=== PATIENT | female | born 1970 | race Caucasian/White ===

== ENCOUNTER → 2020-09-23 08:49 | Outpatient (BNVA) | payer OTHER, SELFPAY | PROVIDERS: Visit Provider Urology ==

== ENCOUNTER 2020-11-20 10:23 | Outpatient (REF) | payer OTHER, SELFPAY ==
[2020-11-27 18:12] LABS: URO-Brushite 24 Hr Urine 1.75 (<2.00); URO-Calcium 24 Hr Urine 41 mg/day (<250.0); URO-Calcium Oxalat 24 Hr Urine 0.24 (<2.00); URO-Citric Acid 24 Hr Urine 50 mg/day (>320); URO-Creatinine 24 Hr Urine 185 mg/day (600-1800); URO-Magnesium 24 Hr Urine 21 mg/day (>60.0); URO-Oxalate 24 Hr Urine 3 mg/day (<45); URO-Phosphorus 24 Hr Urine 272 mg/day (<1100); URO-Potassium 24 Hr Urine 27 mEq/day (19-135); URO-Sodium 24 Hr Urine 92 mEq/day (<200); URO-Sodium Urate 24 Hr Urine 2.28 (<2.00); URO-Sulfate 24 Hr Urine 3 mmol/day (<30); URO-Total Volume 0.76 L/day (>2.00); URO-Uric Acid 24 Hr Urine 0.11 (<2.00); URO-Uric Acid 24 Hr Urine 169 mg/day (<700)
== END 2020-11-20 10:24 | disposition home or self-care (01) ==
LOC: HO.LNP 10:23
PROVIDERS: Urology
DX: N20.0 Calculus of kidney (principal); Q61.5 Medullary cystic kidney; Z90.5 Acquired absence of kidney
CPT/HCPCS: 82340; 82507; 82570; 83735; 83945; 83986; 84105; 84133; 84300; 84392; 84560

== ENCOUNTER 2020-12-01 10:15 | Inpatient (IN) | payer OTHER, SELFPAY ==
--- NOTE | ~2020-12-01 | FL_ITS ---
EXAMINATION: XR FLUOROSCOPY WITH IMAGES CLINICAL INFORMATION: Renal stone disease. COMPARISON: CT abdomen/pelvis 12/01/2020 TECHNIQUE: Fluoroscopy performed by Dr. Bennett Stanton. Fluoroscopy time: 36.6 seconds DAP: 7.64 mGy-m2 Images: 2 FINDINGS: Initial image demonstrates contrast in a normal-appearing right upper collecting system and a normal-appearing proximal right ureter. The second image demonstrates the distal end of a double-J ureteral stent. FL/FL guidance in OR IMPRESSION: Fluoroscopy and spot films provided during right internally dwelling ureteral stent placement.
--- NOTE | ~2020-12-01 | CT_ITS ---
EXAMINATION: CT ABDOMEN AND PELVIS WITHOUT CONTRAST CLINICAL INFORMATION: Right flank pain COMPARISON: Previous abdominal ultrasound June [address] of the abdomen and pelvis most recent April 2009 TECHNIQUE: Multidetector volumetric imaging was performed from the superior aspect of the liver through the pubic symphysis. Sagittal and coronal reformatted images were obtained on the technologist's workstation. This CT examination was performed using dose optimization techniques as appropriate, variously including the following: *Automated exposure control *Adjustment of mA and/or kV according to patient size (this includes techniques or standardized protocols for targeted exams where dose is matched to indication/reason for exam; i.e. extremities or head) *Use of iterative reconstruction technique DLP: 380 mGy-cm FINDINGS: LUNG BASES: The visualized lung bases are unremarkable. LIVER, GALLBLADDER, AND BILIARY TREE: The liver is normal in size, shape, and attenuation. No focal hepatic lesion or biliary ductal dilatation is present. The gallbladder is unremarkable with no evidence of radiopaque gallstones, gallbladder wall thickening, or obvious pericholecystic inflammatory changes. PANCREAS: Unremarkable. SPLEEN: Unremarkable. ADRENAL GLANDS: Unremarkable. KIDNEYS AND URETERS: There is high attenuation seen centrally in the kidneys suggestive of medullary nephrocalcinosis. No hydronephrosis, ureteral dilatation or ureteral stone is seen. The left kidney has been removed. BLADDER: Unremarkable. GASTROINTESTINAL TRACT: The small and large bowel are unremarkable. The appendix is unremarkable. ABDOMINAL WALL: No significant hernia is appreciated. LYMPH NODES: Normal. VASCULAR: There is evidence of mild atherosclerotic disease. No aneurysm is seen. PELVIC VISCERA: Unremarkable. OSSEOUS STRUCTURES: There are degenerative changes of the spine.. CT/CT abdomen pelvis wo con IMPRESSION: Right medullary nephrocalcinosis. No obstructing right renal or ureteral stone seen.
--- NOTE | 2020-12-01 10:49 | ECG_ITS ---
Test Reason : SEIZURE Blood Pressure : / mmHG Vent. Rate : 080 BPM Atrial Rate : 080 BPM P-R Int : 160 ms QRS Dur : 078 ms QT Int : 408 ms P-R-T Axes : 056 031 036 degrees QTc Int : 470 ms Normal sinus rhythm Normal ECG No previous ECGs available Referred By: Sharlene Miner Electronically Signed By:MALACHI NINO
--- NOTE | 2020-12-01 10:51 | ED.GENADULT ---
HPI - General Adult General Chief complaint: Seizure Stated complaint: KIDNEY STONE PAIN Time Seen by Provider: 12/01/20 10:47 Source: patient and family Mode of arrival: wheelchair Limitations: no limitations History of Present Illness HPI narrative: Patient comes emergency room complaining right-sided flank pain. Patient has history of kidney stones. The states that she was asked to come yesterday to the emergency room by Dr. Stanton. Per patient's , last night when the ambulance was called to the patient's residence, the EMS crew refused to take the patient to [facility]. The patient refused transfer and waited until today. Patient initially came in with a chief complaint of flank pain. However, patient had a seizure in the waiting room. According to the , the patient has history of epilepsy, takes Dilantin and Keppra. Patient is compliant with her medications. Patient is known to have clusters of breakthrough seizures every so many weeks. Today patient had a seizure prior to leaving her house, 1 in the car as she was coming to the emergency room, and 1 in the waiting room. Patient is awake and alert, postictal, able to state that she has left flank pain Related Data Home Medications Medication Instructions Recorded Confirmed ondansetron 8 mg disintegrating 8 mg PO Q8H PRN 09/23/20 12/01/20 tablet acetaminophen 325 mg tablet 650 mg PO Q6H PRN 12/01/20 12/01/20 erenumab-aooe 140 mg/mL 140 mg SUBCUT QMONTH 12/01/20 12/01/20 subcutaneous auto-injector gabapentin 300 mg capsule 1 cap PO BID 12/01/20 12/01/20 hydromorphone 4 mg tablet 4 mg PO Q6H PRN 12/01/20 12/01/20 (Dilaudid) levetiracetam 750 mg tablet 1 tab PO QID 12/01/20 12/01/20 omeprazole 20 mg capsule,delayed 1 cap PO DAILY 12/01/20 12/01/20 release oxycodone 20 mg tablet 1 tab PO 5XD 12/01/20 12/01/20 phenytoin sodium extended 100 mg 1 cap PO QID 12/01/20 12/01/20 capsule promethazine 25 mg tablet 1 tab PO Q6H PRN 12/01/20 12/01/20 ropinirole 1 mg tablet 1 tab PO BEDTIME 12/01/20 12/01/20 Allergies Allergy/AdvReac Type Severity Reaction Status Date / Time atropine [ATROPINE] Allergy Unknown ANAPHYLAXIS Verified 11/20/20 10:29 droperidol [From INAPSINE] Allergy Unknown SEIZURES Verified 11/20/20 10:29 NSAIDS (Non-Steroidal Allergy Unknown RENAL Verified 11/20/20 10:29 Anti-Inflamma FAILURE [NSAIDS] sumatriptan [From IMITREX] Allergy Unknown SEIZURES Verified 11/20/20 10:29 From COMPAZINE Allergy Unknown SEIZURES Uncoded 12/06/19 16:20 From IMITREX Allergy Unknown SEIZURES Uncoded 12/06/19 16:20 From REGLAN Allergy Unknown SEIZURES Uncoded 12/06/19 16:20 From TORADOL Allergy Unknown SEIZURES Uncoded 12/06/19 16:20 From ULTRAM Allergy Unknown SEIZURES Uncoded 12/06/19 16:20 Review of Systems Review of Systems: Complaining of flank pain, patient postictal Yes Unobtainable due to mental condition [facility] Past Medical History Medical History (Updated 12/01/20 @ 17:28 by Sharlene Miner MD) Epilepsy Hypokalemia Medullary sponge kidney Microscopic hematuria Nephropathy Recurrent urinary tract infection Systemic lupus erythematosus Social History Social History Patient Tobacco Use Status: Current everyday Tobacco user Advance Directives: No Advance Directives Information Provided: No Patient : No Physical Exam Vital Signs: Vital Signs: Last Vital Signs Temp 98.1 F 12/01/20 10:52 Pulse 75 12/01/20 10:52 Resp 16 12/01/20 10:52 BP 134/91 H 12/01/20 10:52 Pulse Ox 98 12/01/20 10:52 Body Mass Index 20.5 Const: Other: Appearance: Alert. Patient postictal, confused, states she has flank pain Eyes: Pupils dilated, equal, round and reactive to light. ENT: Pharynx normal. No tongue lacerations Neck: Normal inspection. Neck supple. No lymph nodes noted. No crepitus CVS: Normal heart rate and rhythm. Pulses normal. Normal S1 and S2 Respiratory: No respiratory distress. Breath sounds normal. No Wheezing. No rales Abdomen: Soft and nontender. No rigidity. No distention. Positive CVA tenderness on the right side Skin: Skin warm and dry. Normal skin color. Normal skin turgor. Extremities: No lower extremity edema. No lower extremity edema. No Lacerations. No Rash Neuro: Oriented X 3. No motor deficit. No sensory deficit. Moving all extermities. No slurred speech. Course Course Course Narrative: Patient had 2 tonic clonic seizures in the room. Patient was given Ativan. Then patient was given a dose of IV Keppra and IV Dilantin. Patient claims to be having tonic-clonic seizures due to the pain. Nobody witnessed the last 2 seizures. Patient states that the 1 thing that helps her pain is Dilaudid. Patient has had multiple doses of Dilaudid. I discussed the patient with Dr. Stanton, who asks that the hospitalist admit the patient and he will consult in the morning At 05:50pm , patient had ?a seizure? however, patient is actually having pseudoseizures. While patient was having a seizure, she was asked if he wanted Dilaudid and she shook her head yes and she suddenly stop making all the jerking movements. Patient was not postictal afterwards. so far, patient has been medicated with phenytoin IV, Keppra IV, 3 mg of Dilaudid, 6 of morphine, 4 of Ativan. I discussed the patient with our hospitalist, patient being admitted. Medical Decision Making Lab Data Result diagrams: 12/01/20 11:05 12/01/20 11:05 Labs: Lab Results 12/01/20 12/01/20 12/01/20 Range/Units 11:05 11:05 11:05 WBC 2.7 L (4.8-10.8) X10*3/uL RBC 3.81 L (4.20-5.50) X10*6/uL Hgb 12.9 (12.0-16.0) g/dl Hct 37.3 (37-47) % MCV 97.9 (80-98) fL MCH 33.9 H (27.0-33.0) pg MCHC 34.6 (31.0-35.0) g/dl RDW 13.5 (11.0-16.0) % Plt Count 141 L (160-400) X10*3/uL MPV 11.8 (9.4-12.3) fL Immature Gran % (Auto) 0.0 (0.0-0.4) % Neut % (Auto) 55.3 (45-73) % Lymph % (Auto) 32.5 (20-40) % Saline % (Auto) 8.5 (2-11) % Eos % (Auto) 3.0 (0-4) % Baso % (Auto) 0.7 (0-2) % Lymph # (Auto) 0.9 L (1.2-4.9) X10*3/uL Saline # (Auto) 0.2 (0.1-1.2) X10*3/uL Eos # (Auto) 0.1 (0.0-0.4) X10*3/uL Baso # (Auto) 0.0 (0.0-0.2) X10*3/uL Abs Immat Gran (auto) 0.00 (0.00-0.03) X10*3/uL Absolute Neuts (auto) 1.5 L (2.0-8.3) X10*3/uL Absolute Nucleated RBC 0.000 (0.0-0.012) X10*3/uL Nucleated RBC % (auto) 0.0 (0.0-0.2) /100WBC Sodium 138 (135-145) mmol/L Potassium 4.1 (3.3-5.1) mmol/L Chloride 103 (96-108) mmol/L Carbon Dioxide 24 (22-29) mmol/L Anion Gap 15 (12-20) BUN 19 H (9-16) mg/dL Creatinine 0.89 (0.5-1.4) mg/dL Estim Creat Clear Calc 64.2 Estimated GFR > 60 Random Glucose 85 (60-115) mg/dL Lactic Acid (0.5-2.0) mmol/L Lactic Acid Fup @ 2Hr (0.5-2.0) mmol/L Calcium 9.3 (8.4-10.2) mg/dL Total Bilirubin 0.2 (0.0-1.0) mg/dL Direct Bilirubin 0.2 (0.0-0.5) mg/dL AST 44 H (5-31) U/L ALT 29 (0-31) U/L Alkaline Phosphatase 167 H (39-117) U/L Total Protein 6.7 (6.5-8.0) g/dL Albumin 4.1 (3.5-5.0) g/dL Lipase 43 (8-78) U/L Urine Color Urine Appearance Urine pH (5.0-8.0) Ur Specific [place] (1.005-1.025) Urine Protein (NEG-TRACE) MG/DL Urine Glucose (UA) (NEG) MG/DL Urine Ketones (NEG) MG/DL Urine Blood (NEG) Urine Nitrite (NEG) Ur Leukocyte Esterase (NEG) Urine RBC (0) /HPF Urine WBC (0-4) /HPF Ur Squamous Epith Cells /LPF Urine Bacteria /LPF Urine Opiates Screen (Not Detect) Urine Fentanyl Screen (Not Detect) Ur Barbiturates Screen (Not Detect) Ur Phencyclidine Scrn (Not Detect) Ur Amphetamines Screen (Not Detect) U Benzodiazepines Scrn (Not Detect) Urine Cocaine Screen (Not Detect) U Marijuana (THC) Screen (Not Detect) COVID-19 (DANIEL) (Negative) COVID-19 Clin Com 12/01/20 12/01/20 12/01/20 Range/Units 11:05 11:09 14:04 WBC (4.8-10.8) X10*3/uL RBC (4.20-5.50) X10*6/uL Hgb (12.0-16.0) g/dl Hct (37-47) % MCV (80-98) fL MCH (27.0-33.0) pg MCHC (31.0-35.0) g/dl RDW (11.0-16.0) % Plt Count (160-400) X10*3/uL MPV (9.4-12.3) fL Immature Gran % (Auto) (0.0-0.4) % Neut % (Auto) (45-73) % Lymph % (Auto) (20-40) % Saline % (Auto) (2-11) % Eos % (Auto) (0-4) % Baso % (Auto) (0-2) % Lymph # (Auto) (1.2-4.9) X10*3/uL Saline # (Auto) (0.1-1.2) X10*3/uL Eos # (Auto) (0.0-0.4) X10*3/uL Baso # (Auto) (0.0-0.2) X10*3/uL Abs Immat Gran (auto) (0.00-0.03) X10*3/uL Absolute Neuts (auto) (2.0-8.3) X10*3/uL Absolute Nucleated RBC (0.0-0.012) X10*3/uL Nucleated RBC % (auto) (0.0-0.2) /100WBC Sodium (135-145) mmol/L Potassium (3.3-5.1) mmol/L Chloride (96-108) mmol/L Carbon Dioxide (22-29) mmol/L Anion Gap (12-20) BUN (9-16) mg/dL Creatinine (0.5-1.4) mg/dL Estim Creat Clear Calc Estimated GFR Random Glucose (60-115) mg/dL Lactic Acid 2.1 H* (0.5-2.0) mmol/L Lactic Acid Fup @ 2Hr 1.3 (0.5-2.0) mmol/L Calcium (8.4-10.2) mg/dL Total Bilirubin (0.0-1.0) mg/dL Direct Bilirubin (0.0-0.5) mg/dL AST (5-31) U/L ALT (0-31) U/L Alkaline Phosphatase (39-117) U/L Total Protein (6.5-8.0) g/dL Albumin (3.5-5.0) g/dL Lipase (8-78) U/L Urine Color Urine Appearance Urine pH (5.0-8.0) Ur Specific [place] (1.005-1.025) Urine Protein (NEG-TRACE) MG/DL Urine Glucose (UA) (NEG) MG/DL Urine Ketones (NEG) MG/DL Urine Blood (NEG) Urine Nitrite (NEG) Ur Leukocyte Esterase (NEG) Urine RBC (0) /HPF Urine WBC (0-4) /HPF Ur Squamous Epith Cells /LPF Urine Bacteria /LPF Urine Opiates Screen (Not Detect) Urine Fentanyl Screen (Not Detect) Ur Barbiturates Screen (Not Detect) Ur Phencyclidine Scrn (Not Detect) Ur Amphetamines Screen (Not Detect) U Benzodiazepines Scrn (Not Detect) Urine Cocaine Screen (Not Detect) U Marijuana (THC) Screen (Not Detect) COVID-19 (DANIEL) Negative (Negative) COVID-19 Clin Com See Note 12/01/20 12/01/20 Range/Units 16:09 16:09 WBC (4.8-10.8) X10*3/uL RBC (4.20-5.50) X10*6/uL Hgb (12.0-16.0) g/dl Hct (37-47) % MCV (80-98) fL MCH (27.0-33.0) pg MCHC (31.0-35.0) g/dl RDW (11.0-16.0) % Plt Count (160-400) X10*3/uL MPV (9.4-12.3) fL Immature Gran % (Auto) (0.0-0.4) % Neut % (Auto) (45-73) % Lymph % (Auto) (20-40) % Saline % (Auto) (2-11) % Eos % (Auto) (0-4) % Baso % (Auto) (0-2) % Lymph # (Auto) (1.2-4.9) X10*3/uL Saline # (Auto) (0.1-1.2) X10*3/uL Eos # (Auto) (0.0-0.4) X10*3/uL Baso # (Auto) (0.0-0.2) X10*3/uL Abs Immat Gran (auto) (0.00-0.03) X10*3/uL Absolute Neuts (auto) (2.0-8.3) X10*3/uL Absolute Nucleated RBC (0.0-0.012) X10*3/uL Nucleated RBC % (auto) (0.0-0.2) /100WBC Sodium (135-145) mmol/L Potassium (3.3-5.1) mmol/L Chloride (96-108) mmol/L Carbon Dioxide (22-29) mmol/L Anion Gap (12-20) BUN (9-16) mg/dL Creatinine (0.5-1.4) mg/dL Estim Creat Clear Calc Estimated GFR Random Glucose (60-115) mg/dL Lactic Acid (0.5-2.0) mmol/L Lactic Acid Fup @ 2Hr (0.5-2.0) mmol/L Calcium (8.4-10.2) mg/dL Total Bilirubin (0.0-1.0) mg/dL Direct Bilirubin (0.0-0.5) mg/dL AST (5-31) U/L ALT (0-31) U/L Alkaline Phosphatase (39-117) U/L Total Protein (6.5-8.0) g/dL Albumin (3.5-5.0) g/dL Lipase (8-78) U/L Urine Color YELLOW Urine Appearance CLEAR Urine pH 6.5 (5.0-8.0) Ur Specific [place] 1.015 (1.005-1.025) Urine Protein NEG (NEG-TRACE) MG/DL Urine Glucose (UA) NEG (NEG) MG/DL Urine Ketones NEG (NEG) MG/DL Urine Blood 3+ H (NEG) Urine Nitrite NEG (NEG) Ur Leukocyte Esterase NEG (NEG) Urine RBC 15-29 H (0) /HPF Urine WBC 0 (0-4) /HPF Ur Squamous Epith Cells 1+ /LPF Urine Bacteria NONE /LPF Urine Opiates Screen Not Detected (Not Detect) Urine Fentanyl Screen POSITIVE H (Not Detect) Ur Barbiturates Screen Not Detected (Not Detect) Ur Phencyclidine Scrn Not Detected (Not Detect) Ur Amphetamines Screen Not Detected (Not Detect) U Benzodiazepines Scrn Not Detected (Not Detect) Urine Cocaine Screen Not Detected (Not Detect) U Marijuana (THC) Screen POSITIVE H (Not Detect) COVID-19 (DANIEL) (Negative) COVID-19 Clin Com Imaging Data CT scan - abdomen: Radiologist's impression: COMPARISON: Previous abdominal ultrasound June [address] of the abdomen and pelvis most recent April 2009? TECHNIQUE: Multidetector volumetric imaging was performed from the superior aspect of the liver through the pubic symphysis. Sagittal and coronal reformatted images were obtained on the technologist's workstation.? This CT examination was performed using dose optimization techniques as appropriate, variously including the following: *Automated exposure control *Adjustment of mA and/or kV according to patient size (this includes techniques or standardized protocols for targeted exams where dose is matched to indication/reason for exam; i.e. extremities or head) *Use of iterative reconstruction technique DLP: 380 mGy-cm FINDINGS: LUNG BASES: The visualized lung bases are unremarkable.? LIVER, GALLBLADDER, AND BILIARY TREE: The liver is normal in size, shape, and attenuation. No focal hepatic lesion or biliary ductal dilatation is present. The gallbladder is unremarkable with no evidence of radiopaque gallstones, gallbladder wall thickening, or obvious pericholecystic inflammatory changes.? PANCREAS: Unremarkable.? SPLEEN: Unremarkable.? ADRENAL GLANDS: Unremarkable.? KIDNEYS AND URETERS: There is high attenuation seen centrally in the kidneys suggestive of medullary nephrocalcinosis. No hydronephrosis, ureteral dilatation or ureteral stone is seen. The left kidney has been removed. BLADDER: Unremarkable.? GASTROINTESTINAL TRACT: The small and large bowel are unremarkable. The appendix is unremarkable.? ABDOMINAL WALL: No significant hernia is appreciated.? LYMPH NODES: Normal. VASCULAR: There is evidence of mild atherosclerotic disease. No aneurysm is seen. PELVIC VISCERA: Unremarkable.? OSSEOUS STRUCTURES: There are degenerative changes of the spine..? CT/CT abdomen pelvis wo con IMPRESSION: Right medullary nephrocalcinosis. No obstructing right renal or ureteral stone seen. Discharge Plan Discharge Clinical Impression: Acute flank pain, Generalized seizure Patient Disposition: Home, Self-Care Prescriptions: No Action acetaminophen 325 mg Tablet 650 mg PO Q6H PRN (Reason: Pain (Scale Score 1-3)) RF: 0 hydromorphone [Dilaudid] 4 mg tablet 4 mg PO Q6H PRN (Reason: Pain (Scale Score 7-10)) RF: 0 gabapentin 300 mg capsule 1 cap PO BID RF: 0 levetiracetam 750 mg tablet 1 tab PO QID RF: 0 erenumab-aooe 140 mg/mL Auto-Injector 140 mg SUBCUT QMONTH RF: 0 omeprazole 20 mg capsule,delayed release(DR/EC) 1 cap PO DAILY RF: 0 ropinirole 1 mg tablet 1 tab PO BEDTIME RF: 0 promethazine 25 mg tablet 1 tab PO Q6H PRN (Reason: nausea/vomiting) RF: 0
[2020-12-01 10:52] VITALS: BP 134/91; PULSE 75; RESP 16; TEMP 36.7; O2SAT 98; BMI 20.5
[2020-12-01 11:11] LABS: MANUAL DIFF FLAG NO
[2020-12-01 11:12] LABS: Basophils Percent Auto 0.7 % (0-2); Eosinophils Absolute Auto 0.1 X10*3/uL (0.0-0.4); Hematocrit 37.3 % (37-47); Hemoglobin 12.9 g/dl (12.0-16.0); Lymphocytes Absolute Auto 0.9 X10*3/uL (1.2-4.9); Lymphocytes Percent Auto 32.5 % (20-40); Mean Corpuscular HGB Conc 34.6 g/dl (31.0-35.0); Mean Corpuscular Hemoglobin 33.9 pg (27.0-33.0); Mean Corpuscular Volume 97.9 fL (80-98); Mean Platelet Volume 11.8 fL (9.4-12.3); Monocytes Absolute Auto 0.2 X10*3/uL (0.1-1.2); Monocytes Percent Auto 8.5 % (2-11); Neutrophils Absolute Auto 1.5 X10*3/uL (2.0-8.3); Neutrophils Percent Auto 55.3 % (45-73); Platelet Count 141 X10*3/uL (160-400); Red Blood Count 3.81 X10*6/uL (4.20-5.50); Red Cell Distribution Width 13.5 % (11.0-16.0); White Blood Count 2.7 X10*3/uL (4.8-10.8)
[2020-12-01 11:32] LABS: Alanine Aminotransferase 29 U/L (0-31); Albumin Level 4.1 g/dL (3.5-5.0); Alkaline Phosphatase 167 U/L (39-117); Anion Gap 15 (12-20); Aspartate Amino Transferase 44 U/L (5-31); Bilirubin Direct 0.2 mg/dL (0.0-0.5); Bilirubin Total 0.2 mg/dL (0.0-1.0); Blood Urea Nitrogen 19 mg/dL (9-16); Calcium 9.3 mg/dL (8.4-10.2); Carbon Dioxide 24 mmol/L (22-29); Chloride 103 mmol/L (96-108); Creatinine Clr Calc Pharmacy 64.2; Estimated Glomerular Filt Rate > 60; Glucose Random 85 mg/dL (60-115); Lipase 43 U/L (8-78); Potassium 4.1 mmol/L (3.3-5.1); Sodium 138 mmol/L (135-145); Total Protein 6.7 g/dL (6.5-8.0)
[2020-12-01 11:33] LABS: Lactic Acid 2.1 mmol/L (0.5-2.0)
[2020-12-01 11:39] LABS: COVID-19 Test Negative (Negative)
[2020-12-01] MEDS: LORazepam 2 MG/ML VIAL IM (11:57)
[2020-12-01] MEDS: levETIRAcetam in NaCl (iso-os) 1,500 MG/100 ML PIGGYBACK 400 MG IV (12:07)
[2020-12-01] MEDS: 0.9 % Sodium Chloride 1,000 ML 999 ML IVCONT (12:07)
[2020-12-01] MEDS: ondansetron HCL 4 MG/2 ML VIAL IVPUSH (12:11)
[2020-12-01 13:11] LABS: Reflex Lactate? Lactic Acid Added
[2020-12-01] MEDS: Morphine Sulfate 4 MG/ML CARTRIDGE IVPUSH (13:18)
[2020-12-01] MEDS: LORazepam 2 MG/ML VIAL 1 MG IVPUSH (13:20)
--- NOTE | 2020-12-01 13:35 | PHA.MEDREC ---
Pharmacy Consult ? Medication Reconciliation Pharmacy has completed the medication reconciliation. SPOKE WITH PATIENT IN THE ED.
[2020-12-01 14:20] LABS: ~Lactic Acid-LAB USE ONLY 1.3 mmol/L (0.5-2.0)
[2020-12-01] MEDS: Phenytoin Sodium 100 MG/2 ML VIAL 300 MG IVPUSH (14:23)
[2020-12-01] MEDS: HYDROmorphone HCl 1 MG/ML SYRINGE IVPUSH (15:52)
[2020-12-01 16:19] LABS: Appearance Urine CLEAR; Color Urine YELLOW; Glucose Urine UA NEG (NEG); Leukocyte Esterase Urine NEG (NEG); Nitrite Urine NEG (NEG); PH 6.5 (5.0-8.0); Specific Gravity - Urine 1.015 (1.005-1.025); UACC Culture Trigger NO; Urine Blood 3+ (NEG); Urine Ketones NEG (NEG); Urine Protein NEG (NEG-TRACE)
[2020-12-01 16:30] LABS: Squamous Epithelial Cell Urine 1+ /LPF; WBC Urine 0 /HPF (0-4)
[2020-12-01 16:42] LABS: Amphetamine Screen Urine Not Detected (Not Detect); Barbiturates, Urine Not Detected (Not Detect); Benzodiazepines Screen Urine Not Detected (Not Detect); Cannabinoid Screen Urine POSITIVE (Not Detect); Cocaine Screen Urine Not Detected (Not Detect); Fentanyl, urine POSITIVE (Not Detect); Opiate Screen Urine Not Detected (Not Detect); Phencyclidine Screen Urine Not Detected (Not Detect)
[2020-12-01 19:35] VITALS: BP 134/91; PULSE 75; RESP 16; TEMP 36.7
--- NOTE | 2020-12-01 19:37 | PC.NURSE ---
PT ARRIVED ACTIVELY SEIZING, PT HAS BEEN ASKING FOR DILATED THROUGH OUT THE SHIFT, PT HAS HAD SOME SEUDO SEIZURES AND THEN REQUESTS PAIN MEDICATION. HOW EVER PT DOES HAVE A SEIZURE DISORDER KEPPRA/DIANTIN LEVELS LOW KEPPRA AND DILANTIN GIVEN. POWER PORT ACCESSED. PT IS AOX4 ABLE TO GET OOB TO COMODE NEEDED.
--- NOTE | 2020-12-01 19:39 | PC.NURSE ---
PT HAS BEEN REFUSING PAIN MEDICATIONS, AND THEN WILL ASK FOR THEM 20 TO 30 MINS LATER,
--- NOTE | 2020-12-01 19:43 | PM.IMHP ---
History of Present Illness Date of Service: 12/01/20 Chief Complaint: Flank pain 50-year-old female with a past medical history of epilepsy, medical response kidney, microscopic hematuria, nephropathy, SLE, history of recurrent UTI presented to the hospital with a chief complaint of flank pain on the right side; Patient reports that he has been having right flank pain for the past 1 day; associated nausea; denies any gross blood in the urine. Denies any burning frequency or urgency. Denies any chest pain or palpitations. Reports she has a history of medullary sponge kidney and history of kidney stones; Also mentions that she has a history of epilepsy and now she is in severe pain she gets of breakthrough seizures; is on Keppra and Dilantin at home and reports he has been compliant. Denies any fall or trauma. Denies any chest pain palpitations lightheadedness or dizziness. Denies any numbness tingling or focal weakness. Patient is alert and awake at the time of my interview. ER course: Per ER team patient reportedly had 1 seizure at home for 1 in the EMS, 1 in the waiting area in the ER; and followed by she had 2 seizures in the ER. Patient was given Ativan, Keppra, Dilantin in the ER. Patient was asking for IV pain medications and was given IV morphine, IV Dilaudid, IV Ativan. ER team mentioned that day discussed with the Urology who recommended admission to the medicine service. [facility] Medical History (Updated 12/03/20 @ 15:54 by Evelyn Madsen MD) Epilepsy Hypokalemia Medullary sponge kidney Microscopic hematuria Nephropathy Recurrent urinary tract infection Systemic lupus erythematosus Social History (Updated 12/04/20 @ 16:23 by Joceline Gilbert MD) Household Members: Significant Other Housing: Apartment Do you presently have visiting nurse or other home services: No Patient Tobacco Use Status: Current everyday Tobacco user Tobacco use type: Cigarette Smoked in Last 30 Days: Yes Patient Interested in Nicotine Replacement: Yes Patient Given Instructions on How to Stop Smoking: No Second Hand Smoke Exposure: No Use of substances other than those prescribed or required for medical reasons: Yes Substance Use Type: Marijuana Substance Use Frequency: Chronic Longstanding Last Used Substance: Days (ago) Currently Displaying Signs/Symptoms of Drug Intoxication Withdrawal: No Any prior treatment program specific to substance use: No Have you been hit, kicked, punched, or otherwise hurt by someone within the past year? If so, by whom?: No Do you feel safe in your current relationship?: Yes Is there a partner from a previous relationship who is making you feel unsafe now?: No Are you made to feel afraid or neglected: No Advance Directives: No Advance Directives Information Provided: No Do you have thoughts of harming others: None Do you have a plan to hurt others: No Plan Recently lost weight without trying: No Nutrition Risks: No Nutritional Risk Patient : No : No Poor oral hygiene: No service: No Current occupational status: disabled Meds Allergies Allergy/AdvReac Type Severity Reaction Status Date / Time atropine [ATROPINE] Allergy Unknown ANAPHYLAXIS Verified 11/20/20 10:29 droperidol [From INAPSINE] Allergy Unknown SEIZURES Verified 11/20/20 10:29 NSAIDS (Non-Steroidal Allergy Unknown RENAL Verified 11/20/20 10:29 Anti-Inflamma FAILURE [NSAIDS] sumatriptan [From IMITREX] Allergy Unknown SEIZURES Verified 11/20/20 10:29 From COMPAZINE Allergy Unknown SEIZURES Uncoded 12/06/19 16:20 From IMITREX Allergy Unknown SEIZURES Uncoded 12/06/19 16:20 From REGLAN Allergy Unknown SEIZURES Uncoded 12/06/19 16:20 From TORADOL Allergy Unknown SEIZURES Uncoded 12/06/19 16:20 From ULTRAM Allergy Unknown SEIZURES Uncoded 12/06/19 16:20 Active Medications: Current Medications Generic Name Dose Route Start Last Admin Trade Name Freq PRN Reason Stop Dose Admin Acetaminophen 650 mg 12/01/20 19:38 Acetaminophen 325 Mg Tablet PO Q6H PRN Pain (Scale Score 1-3) Gabapentin 300 mg 12/01/20 21:00 Gabapentin 300 Mg Capsule PO BID BRISEYDA Lorazepam 1 mg 12/01/20 19:39 Lorazepam 2 Mg/Ml Vial IVPUSH Q2H PRN Seizures Non-Formulary Medication 140 mg 12/01/20 19:45 Erenumab-Aooe SUBCUT QMONTH [facility] Non-Formulary Medication 1 tab 12/01/20 21:00 Levetiracetam PO QID BRISEYDA Omeprazole 20 mg 12/02/20 09:00 Omeprazole 20 Mg Capsule. PO DAILY BRISEYDA Oxycodone HCl 20 mg 12/01/20 21:00 Oxycodone Hcl Immed Release 5 Mg Tablet PO 5XD [facility] Pharmacy Consult 1 each 12/01/20 12:56 Consult Rx Perform Med Rec MISCELLANE ONCE PRN Consult order Pharmacy Consult 1 each 12/01/20 17:23 Consult Rx Perform Med Rec MISCELLANE ONCE PRN Consult order Phenytoin Sodium 100 mg 12/01/20 21:00 Phenytoin Sodium Extended 100 Mg Capsule PO QID [facility] Promethazine HCl 25 mg 12/01/20 19:38 Promethazine Hcl 25 Mg Tablet PO Q6H PRN nausea/vomiting Ropinirole HCl 1 mg 12/01/20 21:00 Ropinirole Hcl 1 Mg Tablet PO BEDTIME [facility] Home Medications Medication Instructions Recorded Confirmed Last Taken Type acetaminophen 325 mg tablet 650 mg PO Q6H PRN 12/01/20 12/01/20 Unknown History erenumab-aooe 140 mg/mL 140 mg SUBCUT QMONTH 12/01/20 12/01/20 11/01/20 History subcutaneous auto-injector gabapentin 300 mg capsule 1 cap PO BID 12/01/20 12/01/20 11/24/20 History hydromorphone 4 mg tablet 4 mg PO Q6H PRN 12/01/20 12/01/20 Unknown History (Dilaudid) levetiracetam 750 mg tablet 1 tab PO QID 12/01/20 12/01/20 12/01/20 History omeprazole 20 mg capsule,delayed 1 cap PO DAILY 12/01/20 12/01/20 12/01/20 History release ondansetron 8 mg disintegrating 1 tab PO Q8H PRN 12/01/20 12/01/20 Unknown History tablet oxycodone 20 mg tablet 1 tab PO 5XD 12/01/20 12/01/20 12/01/20 History phenytoin sodium extended 100 mg 1 cap PO QID 12/01/20 12/01/20 12/01/20 History capsule promethazine 25 mg tablet 1 tab PO Q6H PRN 12/01/20 12/01/20 11/30/20 History ropinirole 1 mg tablet 1 tab PO BEDTIME 12/01/20 12/01/20 11/30/20 History Physical Exam Vital Signs and Narrative: Vital Signs: Last Vital Signs Temp 98.1 F 12/01/20 19:35 Pulse 75 12/01/20 19:35 Resp 16 12/01/20 19:35 BP 134/91 H 12/01/20 19:35 Pulse Ox 98 12/01/20 10:52 Body Mass Index 20.5 Gen: Appears be in no acute distress HEENT: NCAT, Moist mucosa. Pulmonary: Vesicular breath sounds, fair air entry CVS: Normal S1-S2 Abdomen: BS+, Soft, Nontender Extremities: Warm well perfused Neuro: Alert and awake. Results Labs CBC and Chem 7: 12/04/20 06:17 12/03/20 06:36 Labs: Laboratory Results - last 24 hr 12/01/20 12/01/20 12/01/20 11:05 11:05 11:05 MCV 97.9 MCH 33.9 H MCHC 34.6 RDW 13.5 Plt Count 141 L MPV 11.8 Immature Gran % (Auto) 0.0 Neut % (Auto) 55.3 Lymph % (Auto) 32.5 [place] % (Auto) 8.5 Eos % (Auto) 3.0 Baso % (Auto) 0.7 Lymph # (Auto) 0.9 L [place] # (Auto) 0.2 Eos # (Auto) 0.1 Baso # (Auto) 0.0 Abs Immat Gran (auto) 0.00 Absolute Neuts (auto) 1.5 L Absolute Nucleated RBC 0.000 Nucleated RBC % (auto) 0.0 Anion Gap 15 Estim Creat Clear Calc 64.2 Estimated GFR > 60 Random Glucose 85 Lactic Acid Lactic Acid Fup @ 2Hr Calcium 9.3 Total Bilirubin 0.2 Direct Bilirubin 0.2 AST 44 H ALT 29 Alkaline Phosphatase 167 H Total Protein 6.7 Albumin 4.1 Lipase 43 Urine Color Urine Appearance Urine pH Ur Specific [place] Urine Protein Urine Glucose (UA) Urine Ketones Urine Blood Urine Nitrite Ur Leukocyte Esterase Urine RBC Urine WBC Ur Squamous Epith Cells Urine Bacteria Urine Opiates Screen Urine Fentanyl Screen Ur Barbiturates Screen Ur Phencyclidine Scrn Ur Amphetamines Screen U Benzodiazepines Scrn Urine Cocaine Screen U Marijuana (THC) Screen COVID-19 (DANIEL) COVID-19 Clin Com 12/01/20 12/01/20 12/01/20 11:05 11:09 14:04 MCV MCH MCHC RDW Plt Count MPV Immature Gran % (Auto) Neut % (Auto) Lymph % (Auto) [place] % (Auto) Eos % (Auto) Baso % (Auto) Lymph # (Auto) [place] # (Auto) Eos # (Auto) Baso # (Auto) Abs Immat Gran (auto) Absolute Neuts (auto) Absolute Nucleated RBC Nucleated RBC % (auto) Anion Gap Estim Creat Clear Calc Estimated GFR Random Glucose Lactic Acid 2.1 H* Lactic Acid Fup @ 2Hr 1.3 Calcium Total Bilirubin Direct Bilirubin AST ALT Alkaline Phosphatase Total Protein Albumin Lipase Urine Color Urine Appearance Urine pH Ur Specific [place] Urine Protein Urine Glucose (UA) Urine Ketones Urine Blood Urine Nitrite Ur Leukocyte Esterase Urine RBC Urine WBC Ur Squamous Epith Cells Urine Bacteria Urine Opiates Screen Urine Fentanyl Screen Ur Barbiturates Screen Ur Phencyclidine Scrn Ur Amphetamines Screen U Benzodiazepines Scrn Urine Cocaine Screen U Marijuana (THC) Screen COVID-19 (DANIEL) Negative COVID-19 Clin Com See Note 12/01/20 12/01/20 16:09 16:09 MCV MCH MCHC RDW Plt Count MPV Immature Gran % (Auto) Neut % (Auto) Lymph % (Auto) [place] % (Auto) Eos % (Auto) Baso % (Auto) Lymph # (Auto) [place] # (Auto) Eos # (Auto) Baso # (Auto) Abs Immat Gran (auto) Absolute Neuts (auto) Absolute Nucleated RBC Nucleated RBC % (auto) Anion Gap Estim Creat Clear Calc Estimated GFR Random Glucose Lactic Acid Lactic Acid Fup @ 2Hr Calcium Total Bilirubin Direct Bilirubin AST ALT Alkaline Phosphatase Total Protein Albumin Lipase Urine Color YELLOW Urine Appearance CLEAR Urine pH 6.5 Ur Specific [place] 1.015 Urine Protein NEG Urine Glucose (UA) NEG Urine Ketones NEG Urine Blood 3+ H Urine Nitrite NEG Ur Leukocyte Esterase NEG Urine RBC 15-29 H Urine WBC 0 Ur Squamous Epith Cells 1+ Urine Bacteria NONE Urine Opiates Screen Not Detected Urine Fentanyl Screen POSITIVE H Ur Barbiturates Screen Not Detected Ur Phencyclidine Scrn Not Detected Ur Amphetamines Screen Not Detected U Benzodiazepines Scrn Not Detected Urine Cocaine Screen Not Detected U Marijuana (THC) Screen POSITIVE H COVID-19 (DANIEL) COVID-19 Clin Com Imaging Radiologist's Impressions: Impressions Abdomen/Pelvis CT 12/01/20 10:49 IMPRESSION: Right medullary nephrocalcinosis. No obstructing right renal or ureteral stone seen. Assessment and Plan (1) Acute flank pain: Status: Acute (2) Generalized seizure: Status: Acute (3) Medullary sponge kidney: Status: Acute 50-year-old female with a past medical history of epilepsy, medical response kidney, microscopic hematuria, nephropathy, SLE, history of recurrent UTI presented to the hospital with a chief complaint of right a flank pain also had seizures in the ER. Right flank pain: CT scan showed medullary nephrocalcinosis. UA showed microscopic hematuria. Urology is aware of the patient. Pain control with Dilaudid.(patient is on Dilaudid at home ? Tolerance for opiates) Seizures: Patient had multiple episodes of seizures today. But ER team is concerned it is probably pseudoseizures patient was alert and awake and was responding to the questions when patient was having a seizure. Seizure precautions Neurology consult continue home Keppra and Dilantin Ativan p.r.n. for breakthrough seizure Mild leukopenia/lymphopenia: COVID-19 negative. No obvious signs of infection. Will continue to monitor. \ DVT prophylaxis: SCD boots Code status: Full code Quality Stroke Does the patient have a stroke diagnosis?: No VTE Prior VTE?: No VTE Risk Level:: Medical - moderate - high VTE Device Contraindication: N/A - Device Ordered VTE Drug Contraindication: Treatment Not Indicated
[2020-12-01] MEDS: levETIRAcetam 500 MG TABLET 750 MG PO (21:38)
[2020-12-01] MEDS: Gabapentin 300 MG CAPSULE PO (21:38)
[2020-12-01] MEDS: Phenytoin Sodium Extended 100 MG CAPSULE PO (21:39)
[2020-12-01] MEDS: rOPINIRole HCL 1 MG TABLET PO (22:16)
[2020-12-01] MEDS: Dextrose 5 % and 0.45 % NaCl 1,000 ML 75 ML IVCONT (22:16)
[2020-12-01 22:24] VITALS: RESP 16
[2020-12-01] MEDS: HYDROmorphone HCl 2 MG/ML VIAL IVPUSH (22:24)
[2020-12-01 22:30] VITALS: BP 111/78; PULSE 68; RESP 16; O2SAT 95
[2020-12-01 23:25] VITALS: BP 109/72; PULSE 69; RESP 16; TEMP 36.7; O2SAT 95
[2020-12-01 23:52] VITALS: BP 110/72; PULSE 65; RESP 14; O2SAT 96
[2020-12-02] VITALS (7 sets, daily range): BP systolic 112–124; BP diastolic 69–80; PULSE 71–84; RESP 16–20; TEMP 36.1–36.8; O2SAT 96–99
[2020-12-02] MEDS: ondansetron HCL 4 MG/2 ML VIAL IVPUSH ×2 (01:06→22:29)
[2020-12-02] MEDS: HYDROmorphone HCl 0.5 MG/0.5 ML SYRINGE 1 MG IVPUSH ×3 (04:17→12:00)
[2020-12-02 07:40] LABS: MANUAL DIFF FLAG NO
[2020-12-02 07:43] LABS: Basophils Percent Auto 0.4 % (0-2); Eosinophils Absolute Auto 0.2 X10*3/uL (0.0-0.4); Eosinophils Percent Auto 5.5 % (0-4); Hematocrit 38.2 % (37-47); Hemoglobin 12.7 g/dl (12.0-16.0); Imm Gran Abs Auto 0.01 X10*3/uL (0.00-0.03); Imm Gran Pct Auto 0.4 % (0.0-0.4); Lymphocytes Absolute Auto 1.1 X10*3/uL (1.2-4.9); Lymphocytes Percent Auto 40.1 % (20-40); Mean Corpuscular HGB Conc 33.2 g/dl (31.0-35.0); Mean Corpuscular Hemoglobin 33.1 pg (27.0-33.0); Mean Corpuscular Volume 99.5 fL (80-98); Mean Platelet Volume 12.3 fL (9.4-12.3); Monocytes Absolute Auto 0.2 X10*3/uL (0.1-1.2); Monocytes Percent Auto 7.4 % (2-11); Neutrophils Absolute Auto 1.3 X10*3/uL (2.0-8.3); Neutrophils Percent Auto 46.2 % (45-73); Platelet Count 125 X10*3/uL (160-400); Red Blood Count 3.84 X10*6/uL (4.20-5.50); Red Cell Distribution Width 13.3 % (11.0-16.0); White Blood Count 2.7 X10*3/uL (4.8-10.8)
[2020-12-02] MEDS: LORazepam 2 MG/ML VIAL 1 MG IVPUSH (07:49)
--- NOTE | 2020-12-02 07:58 | P.PNIM_ITS ---
Subjective Subjective Date of Service: 12/02/20 Interval History: C/o severe R kidney pain Denies use of fentanyl or any other drug other than cannabis No further seizures Review of Systems Review of Systems: Yes all other systems are reviewed and are negative Physical Exam Vital Signs: Vital Signs: Last Vital Signs Temp 97.9 F 12/02/20 06:00 Pulse 71 12/02/20 06:00 Resp 16 12/02/20 06:00 BP 116/73 12/02/20 06:00 Pulse Ox 99 12/02/20 06:00 Body Mass Index 20.5 Gen: in no acute distress HEENT: sclera anicteric, moist mucus membranes Neck: supple Lungs: clear to auscultation bilaterally Heart: regular rate and rhythm, no murmurs Abd: soft, non-tender, non-distended : R CVA tenderness Ext: no edema Skin: warm/well-perfused Neuro: alert and oriented x3, no focal findings Psych: appropriate affect Objective Data Active Medications Acetaminophen (Acetaminophen 325 Mg Tablet) 650 mg PO Q6H PRN PRN Reason: Pain (Scale Score 1-3) Gabapentin (Gabapentin 300 Mg Capsule) 300 mg PO BID [facility] Last Admin: 12/01/20 21:38 Dose: 300 mg Documented by: YARY Hydromorphone HCl (Hydromorphone Hcl 0.5 Mg/0.5 Ml Syringe) 1 mg IVPUSH Q4H PRN; Protocol PRN Reason: Pain, Severe (Pain Scale 7-10) Last Admin: 12/02/20 04:17 Dose: 1 mg Documented by: MIRA Lactated Ringer's (Lr) 1,000 mls @ 80 mls/hr IVCONT .[id number] [facility] Levetiracetam (Levetiracetam 500 Mg Tablet) 750 mg PO QID [facility] Last Admin: 12/01/20 21:38 Dose: 750 mg Documented by: YARY Lorazepam (Lorazepam 2 Mg/Ml Vial) 1 mg IVPUSH Q2H PRN PRN Reason: Seizures Last Admin: 12/02/20 07:49 Dose: 1 mg Documented by: ALEXIS Melatonin (Melatonin 3 Mg Tablet) 6 mg PO BEDTIME PRN PRN Reason: Insomnia Non-Formulary Medication (Erenumab-Aooe) 140 mg SUBCUT Q28D [facility] Omeprazole (Omeprazole 20 Mg Capsule.Dr) 20 mg PO DAILY [facility] Ondansetron HCl (Ondansetron Hcl 4 Mg/2 Ml Vial) 4 mg IVPUSH Q8H PRN PRN Reason: Nausea and Vomiting Last Admin: 12/02/20 01:06 Dose: 4 mg Documented by: MIRA Pharmacy Consult (Consult Rx Perform Med Rec) 1 each MISCELLANE ONCE PRN PRN Reason: Consult order Pharmacy Consult (Consult Rx Perform Med Rec) 1 each MISCELLANE ONCE PRN PRN Reason: Consult order Phenytoin Sodium (Phenytoin Sodium Extended 100 Mg Capsule) 100 mg PO QID [facility] Last Admin: 12/01/20 21:39 Dose: 100 mg Documented by: YARY Promethazine HCl (Promethazine Hcl 25 Mg Tablet) 25 mg PO Q6H PRN PRN Reason: nausea/vomiting Ropinirole HCl (Ropinirole Hcl 1 Mg Tablet) 1 mg PO BEDTIME [facility] Last Admin: 12/01/20 22:16 Dose: 1 mg Documented by: YARY Senna (Sennosides 8.6 Mg Tablet) 17.2 mg PO BEDTIME PRN PRN Reason: Constipation Sodium Chloride (0.9 % Sodium Chloride Flush 3 Ml Syringe) 3 ml IVFLUSH QSHIFT [facility] Last Admin: 12/02/20 04:18 Dose: Not Given Documented by: MIRA Non-Admin Reason: IV Running Labs CBC & Chem 7: 12/02/20 07:34 12/02/20 07:34 Labs: Laboratory Results - last 24 hr 12/01/20 12/01/20 12/01/20 11:05 11:05 11:05 MCV 97.9 MCH 33.9 H MCHC 34.6 RDW 13.5 Plt Count 141 L MPV 11.8 Immature Gran % (Auto) 0.0 Neut % (Auto) 55.3 Lymph % (Auto) 32.5 [place] % (Auto) 8.5 Eos % (Auto) 3.0 Baso % (Auto) 0.7 Lymph # (Auto) 0.9 L [place] # (Auto) 0.2 Eos # (Auto) 0.1 Baso # (Auto) 0.0 Abs Immat Gran (auto) 0.00 Absolute Neuts (auto) 1.5 L Absolute Nucleated RBC 0.000 Nucleated RBC % (auto) 0.0 Anion Gap 15 Estim Creat Clear Calc 64.2 Estimated GFR > 60 Random Glucose 85 Lactic Acid Lactic Acid Fup @ 2Hr Calcium 9.3 Total Bilirubin 0.2 Direct Bilirubin 0.2 AST 44 H ALT 29 Alkaline Phosphatase 167 H Total Protein 6.7 Albumin 4.1 Lipase 43 Urine Color Urine Appearance Urine pH Ur Specific [place] Urine Protein Urine Glucose (UA) Urine Ketones Urine Blood Urine Nitrite Ur Leukocyte Esterase Urine RBC Urine WBC Ur Squamous Epith Cells Urine Bacteria Urine Opiates Screen Urine Fentanyl Screen Ur Barbiturates Screen Ur Phencyclidine Scrn Ur Amphetamines Screen U Benzodiazepines Scrn Urine Cocaine Screen U Marijuana (THC) Screen COVID-19 (DANIEL) COVID-19 [employer] 12/01/20 12/01/20 12/01/20 11:05 11:09 14:04 MCV MCH MCHC RDW Plt Count MPV Immature Gran % (Auto) Neut % (Auto) Lymph % (Auto) [place] % (Auto) Eos % (Auto) Baso % (Auto) Lymph # (Auto) [place] # (Auto) Eos # (Auto) Baso # (Auto) Abs Immat Gran (auto) Absolute Neuts (auto) Absolute Nucleated RBC Nucleated RBC % (auto) Anion Gap Estim Creat Clear Calc Estimated GFR Random Glucose Lactic Acid 2.1 H* Lactic Acid Fup @ 2Hr 1.3 Calcium Total Bilirubin Direct Bilirubin AST ALT Alkaline Phosphatase Total Protein Albumin Lipase Urine Color Urine Appearance Urine pH Ur Specific [place] Urine Protein Urine Glucose (UA) Urine Ketones Urine Blood Urine Nitrite Ur Leukocyte Esterase Urine RBC Urine WBC Ur Squamous Epith Cells Urine Bacteria Urine Opiates Screen Urine Fentanyl Screen Ur Barbiturates Screen Ur Phencyclidine Scrn Ur Amphetamines Screen U Benzodiazepines Scrn Urine Cocaine Screen U Marijuana (THC) Screen COVID-19 (DANIEL) Negative COVID-19 [facility] Com See Note 12/01/20 12/01/20 12/02/20 16:09 16:09 07:34 MCV 99.5 H MCH 33.1 H MCHC 33.2 RDW 13.3 Plt Count 125 L MPV 12.3 Immature Gran % (Auto) 0.4 Neut % (Auto) 46.2 Lymph % (Auto) 40.1 H [place] % (Auto) 7.4 Eos % (Auto) 5.5 H Baso % (Auto) 0.4 Lymph # (Auto) 1.1 L [place] # (Auto) 0.2 Eos # (Auto) 0.2 Baso # (Auto) 0.0 Abs Immat Gran (auto) 0.01 Absolute Neuts (auto) 1.3 L Absolute Nucleated RBC 0.000 Nucleated RBC % (auto) 0.0 Anion Gap Estim Creat Clear Calc Estimated GFR Random Glucose Lactic Acid Lactic Acid Fup @ 2Hr Calcium Total Bilirubin Direct Bilirubin AST ALT Alkaline Phosphatase Total Protein Albumin Lipase Urine Color YELLOW Urine Appearance CLEAR Urine pH 6.5 Ur Specific [place] 1.015 Urine Protein NEG Urine Glucose (UA) NEG Urine Ketones NEG Urine Blood 3+ H Urine Nitrite NEG Ur Leukocyte Esterase NEG Urine RBC 15-29 H Urine WBC 0 Ur Squamous Epith Cells 1+ Urine Bacteria NONE Urine Opiates Screen Not Detected Urine Fentanyl Screen POSITIVE H Ur Barbiturates Screen Not Detected Ur Phencyclidine Scrn Not Detected Ur Amphetamines Screen Not Detected U Benzodiazepines Scrn Not Detected Urine Cocaine Screen Not Detected U Marijuana (THC) Screen POSITIVE H COVID-19 (DANIEL) COVID-19 Clin Com Assessment and Plan (1) Acute flank pain: Status: Acute Assessment and Plan: hospital d#2 50-year-old female with a history of seizure disorder, nephrolithiasis, loin p ain hematuria syndrome, medullary sponge kidney, lupus, IgA nephropathy, presneted with R flank pain, possible seizures in ED though thought by ED staff to be non-epileptic # R flank pain - CT scan showed medullary nephrocalcinosis; UA showed microscopic hematuria; Urology consult pending. continue IV fluids + IV hydromorphone [on PO 4 mg q6h prn as outpt]- increased dose by Urology; will also add IV APAP # seizure disorder - per [place] [facility], 04/25/19: Reported sezirue disorder with hx 1 d vEEG 02/18/11 that was normal despite 2 typical spells and a 2 d study 06/14/16 ?that was also normal (but no spells) admitted after incresed number of seiures in setting of difficulty tolerating po meds due to Gi illness. If genuine, may be due to poor po intake of medications. ?However, it is not even clear as to whether the pt has a true epileptic disorder. ?Suspect not given 3 days of negative EEG recordings and 2 spells that were captured with no electrographic changes. Suspect nonepileptic spells - However, pt states she saw outpt neurologist 2 months ago and is thought to have epileptic seizures. continue Keppra + phenytoin, will try to obtain records, Neurology consult # leukopenia - COVID-19 negative. check HIV. monitor # VTE ppx - LMWH ? Quality Stroke Does the patient have a stroke diagnosis?: No VTE Prior VTE?: No VTE Risk Level:: Medical - moderate - high VTE Device Contraindication: N/A - Device Ordered VTE Drug Contraindication: Treatment Not Indicated
[2020-12-02 08:08] LABS: Anion Gap 12 (12-20); Blood Urea Nitrogen 10 mg/dL (9-16); Calcium 8.3 mg/dL (8.4-10.2); Carbon Dioxide 21 mmol/L (22-29); Chloride 106 mmol/L (96-108); Creatinine Clr Calc Pharmacy 75.2; Estimated Glomerular Filt Rate > 60; Glucose Random 92 mg/dL (60-115); Potassium 3.8 mmol/L (3.3-5.1); Sodium 135 mmol/L (135-145)
[2020-12-02] MEDS: Phenytoin Sodium Extended 100 MG CAPSULE PO ×4 (08:29→20:18)
[2020-12-02] MEDS: levETIRAcetam 500 MG TABLET 750 MG PO ×4 (08:29→20:19)
[2020-12-02] MEDS: Gabapentin 300 MG CAPSULE PO (08:30)
[2020-12-02] MEDS: Enoxaparin Sodium 40 MG/0.4 ML SYRINGE SUBCUT (08:30)
[2020-12-02] MEDS: Omeprazole 20 MG CAPSULE.DR PO (08:30)
[2020-12-02] MEDS: Lactated Ringers 1,000 ML 80 ML IVCONT ×2 (08:38→20:18)
--- NOTE | 2020-12-02 13:56 | PM.UROCN ---
History of Present Illness Consult details Consult date: 12/02/20 Narrative: Known Medullary sponge kidney Solitary right kidney Present with flank pain may be secondary to stone on formation Concerns that tox screen came back positive for fentanyl She is also positive for marijuana likely that was laced with fentanyl Imaging with nonspecific findings. Renal calcification consistent with Medullary sponge kidney. Question of mid to distal calcification with mild hydroureteronephrosis Stable creatinine Admitted for pain management. If this does not improve would warrant intervention Pain medications adjusted with addition of pain modulators Review of Systems Constitutional: Constitutional: Denies chills and Denies fever(s) Cardiovascular: Cardiovascular: Reports no additional cardiovascular complaints and Denies syncope Respiratory: Respiratory: Denies cough Gastrointestinal: Gastrointestinal: Denies abdominal pain and Denies heartburn Genitourinary: Genitourinary: Reports as per HPI and Denies change in libido Neurologic: Denies syncope Psychiatric: Psychiatric: Denies change in libido Endocrine: Endocrine: Denies change in libido [facility] Past Medical History Medical History (Updated 12/03/20 @ 15:54 by Evelyn Madsen MD) Epilepsy Hypokalemia Medullary sponge kidney Microscopic hematuria Nephropathy Recurrent urinary tract infection Systemic lupus erythematosus Social History Social History Household Members: Significant Other Housing: Apartment Do you presently have visiting nurse or other home services: No Patient Tobacco Use Status: Current everyday Tobacco user Tobacco use type: Cigarette Smoked in Last 30 Days: Yes Patient Interested in Nicotine Replacement: Yes Patient Given Instructions on How to Stop Smoking: No Second Hand Smoke Exposure: No Use of substances other than those prescribed or required for medical reasons: Yes Substance Use Type: Marijuana Substance Use Frequency: Chronic Longstanding Last Used Substance: Days (ago) Currently Displaying Signs/Symptoms of Drug Intoxication Withdrawal: No Any prior treatment program specific to substance use: No Have you been hit, kicked, punched, or otherwise hurt by someone within the past year? If so, by whom?: No Do you feel safe in your current relationship?: Yes Is there a partner from a previous relationship who is making you feel unsafe now?: No Are you made to feel afraid or neglected: No Advance Directives: No Advance Directives Information Provided: No Do you have thoughts of harming others: None Do you have a plan to hurt others: No Plan Recently lost weight without trying: No Nutrition Risks: No Nutritional Risk Patient : No : No Poor oral hygiene: No service: No Current occupational status: disabled Meds Allergies Allergy/AdvReac Type Severity Reaction Status Date / Time atropine [ATROPINE] Allergy Unknown ANAPHYLAXIS Verified 11/20/20 10:29 droperidol [From INAPSINE] Allergy Unknown SEIZURES Verified 11/20/20 10:29 NSAIDS (Non-Steroidal Allergy Unknown RENAL Verified 11/20/20 10:29 Anti-Inflamma FAILURE [NSAIDS] sumatriptan [From IMITREX] Allergy Unknown SEIZURES Verified 11/20/20 10:29 From COMPAZINE Allergy Unknown SEIZURES Uncoded 12/06/19 16:20 From IMITREX Allergy Unknown SEIZURES Uncoded 12/06/19 16:20 From REGLAN Allergy Unknown SEIZURES Uncoded 12/06/19 16:20 From TORADOL Allergy Unknown SEIZURES Uncoded 12/06/19 16:20 From ULTRAM Allergy Unknown SEIZURES Uncoded 12/06/19 16:20 Active Medications: Current Medications Generic Name Dose Route Start Last Admin Trade Name Freq PRN Reason Stop Dose Admin Acetaminophen 650 mg 12/01/20 19:38 Acetaminophen 325 Mg Tablet PO Q6H PRN Pain (Scale Score 1-3) Enoxaparin Sodium 40 mg 12/02/20 09:00 12/02/20 08:30 Enoxaparin Sodium 40 Mg/0.4 Ml Syringe SUBCUT 40 mg Q24H BRISEYDA Administration Gabapentin 300 mg 12/01/20 21:00 12/02/20 08:30 Gabapentin 300 Mg Capsule PO 300 mg BID BRISEYDA Administration Hydromorphone HCl 1 mg 12/01/20 22:14 12/02/20 12:00 Hydromorphone Hcl 0.5 Mg/0.5 Ml Syringe IVPUSH 1 mg Q4H PRN Administration Pain, Severe (Pain Scale 7-10) Protocol Lactated Ringer's 1,000 mls @ 80 mls/hr 12/02/20 08:00 12/02/20 08:38 Lr IVCONT 80 mls/hr .[id number] BRISEYDA Administration Levetiracetam 750 mg 12/01/20 21:00 12/02/20 12:00 Levetiracetam 500 Mg Tablet PO 750 mg QID BRISEYDA Administration Lorazepam 1 mg 12/01/20 19:39 12/02/20 07:49 Lorazepam 2 Mg/Ml Vial IVPUSH 1 mg Q2H PRN Administration Seizures Melatonin 6 mg 12/01/20 19:41 Melatonin 3 Mg Tablet PO BEDTIME PRN Insomnia Non-Formulary Medication 140 mg 12/01/20 19:45 Erenumab-Aooe SUBCUT Q28D [facility] Omeprazole 20 mg 12/02/20 09:00 12/02/20 08:30 Omeprazole 20 Mg Capsule.Dr PO 20 mg DAILY BRISEYDA Administration Ondansetron HCl 4 mg 12/01/20 19:41 12/02/20 01:06 Ondansetron Hcl 4 Mg/2 Ml Vial IVPUSH 4 mg Q8H PRN Administration Nausea and Vomiting Pharmacy Consult 1 each 12/01/20 12:56 Consult Rx Perform Med Rec MISCELLANE ONCE PRN Consult order Pharmacy Consult 1 each 12/01/20 17:23 Consult Rx Perform Med Rec MISCELLANE ONCE PRN Consult order Phenytoin Sodium 100 mg 12/01/20 21:00 12/02/20 12:00 Phenytoin Sodium Extended 100 Mg Capsule PO 100 mg QID [facility] Administration Promethazine HCl 25 mg 12/01/20 19:38 Promethazine Hcl 25 Mg Tablet PO Q6H PRN nausea/vomiting Ropinirole HCl 1 mg 12/01/20 21:00 12/01/20 22:16 Ropinirole Hcl 1 Mg Tablet PO 1 mg BEDTIME [facility] Administration Senna 17.2 mg 12/01/20 19:41 Sennosides 8.6 Mg Tablet PO BEDTIME PRN Constipation Sodium Chloride 3 ml 12/02/20 00:00 12/02/20 09:15 0.9 % Sodium Chloride Flush 3 Ml Syringe IVFLUSH Not Given QSHIFT [facility] Home Medications Medication Instructions Recorded Confirmed Last Taken Type acetaminophen 325 mg tablet 650 mg PO Q6H PRN 12/01/20 12/01/20 Unknown History erenumab-aooe 140 mg/mL 140 mg SUBCUT QMONTH 12/01/20 12/01/20 11/01/20 History subcutaneous auto-injector gabapentin 300 mg capsule 1 cap PO BID 12/01/20 12/01/20 11/24/20 History hydromorphone 4 mg tablet 4 mg PO Q6H PRN 12/01/20 12/01/20 Unknown History (Dilaudid) levetiracetam 750 mg tablet 1 tab PO QID 12/01/20 12/01/20 12/01/20 History omeprazole 20 mg capsule,delayed 1 cap PO DAILY 12/01/20 12/01/20 12/01/20 History release ondansetron 8 mg disintegrating 1 tab PO Q8H PRN 12/01/20 12/01/20 Unknown History tablet oxycodone 20 mg tablet 1 tab PO 5XD 12/01/20 12/01/20 12/01/20 History phenytoin sodium extended 100 mg 1 cap PO QID 12/01/20 12/01/20 12/01/20 History capsule promethazine 25 mg tablet 1 tab PO Q6H PRN 12/01/20 12/01/20 11/30/20 History ropinirole 1 mg tablet 1 tab PO BEDTIME 12/01/20 12/01/20 11/30/20 History Physical Exam Vital Signs: Vital Signs: Last Vital Signs Temp 98.2 F 12/02/20 12:00 Pulse 78 12/02/20 12:00 Resp 20 12/02/20 12:00 BP 112/69 12/02/20 12:00 Pulse Ox 97 12/02/20 12:00 Body Mass Index 20.5 Const: General: cooperative, healthy appearing, comfortable and no acute distress Orientation/consciousness: patient oriented x3 HENMT: Face and sinus: Yes normal facial exam Mouth: moist mucous membranes Neck: Neck: Yes normal visual inspection, Yes full ROM and Yes trachea midline Chest: Chest palpation & inspection: normal inspection of the chest Resp: Effort & Inspection: normal respiratory effort, able to speak in complete sentences and no respiratory distress GI: Inspection: Yes normal to inspection Back/Spine/Pelvis: Cervical Spine: normal cervical lordosis Thoracic/Lumbar Spine: thoracic and lumbar spine normal to inspection Skin: General skin exam: no rashes or lesions noted Neuro: General: patient oriented x3, gait normal, tone normal and moves all extremities Extrem: General: Yes normal to inspection and Yes capillary refill normal Results Labs Result diagrams: 12/04/20 06:17 12/03/20 06:36 Labs: Abnormal lab results 12/01/20 12/01/20 12/02/20 Range/Units 16:09 16:09 07:34 WBC 2.7 L (4.8-10.8) X10*3/uL RBC 3.84 L (4.20-5.50) X10*6/uL MCV 99.5 H (80-98) fL MCH 33.1 H (27.0-33.0) pg Plt Count 125 L (160-400) X10*3/uL Lymph % (Auto) 40.1 H (20-40) % Eos % (Auto) 5.5 H (0-4) % Lymph # (Auto) 1.1 L (1.2-4.9) X10*3/uL Absolute Neuts (auto) 1.3 L (2.0-8.3) X10*3/uL Carbon Dioxide (22-29) mmol/L Calcium (8.4-10.2) mg/dL Urine Blood 3+ H (NEG) Urine RBC 15-29 H (0) /HPF Urine Fentanyl Screen POSITIVE H (Not Detect) U Marijuana (THC) Screen POSITIVE H (Not Detect) 12/02/20 Range/Units 07:34 WBC (4.8-10.8) X10*3/uL RBC (4.20-5.50) X10*6/uL MCV (80-98) fL MCH (27.0-33.0) pg Plt Count (160-400) X10*3/uL Lymph % (Auto) (20-40) % Eos % (Auto) (0-4) % Lymph # (Auto) (1.2-4.9) X10*3/uL Absolute Neuts (auto) (2.0-8.3) X10*3/uL Carbon Dioxide 21 L (22-29) mmol/L Calcium 8.3 L D (8.4-10.2) mg/dL Urine Blood (NEG) Urine RBC (0) /HPF Urine Fentanyl Screen (Not Detect) U Marijuana (THC) Screen (Not Detect) Short CBC 12/02/20 Range/Units 07:34 WBC 2.7 L (4.8-10.8) X10*3/uL Hgb 12.7 (12.0-16.0) g/dl Hct 38.2 (37-47) % Plt Count 125 L (160-400) X10*3/uL BMP 12/02/20 07:34 Sodium 135 Potassium 3.8 Chloride 106 Carbon Dioxide 21 L BUN 10 Creatinine 0.76 Calcium 8.3 L D Urine 12/01/20 Range/Units 16:09 Urine Color YELLOW Urine Appearance CLEAR Urine pH 6.5 (5.0-8.0) Ur Specific [place] 1.015 (1.005-1.025) Urine Protein NEG (NEG-TRACE) MG/DL Urine Glucose (UA) NEG (NEG) MG/DL All other labs normal. Assessment and Plan (1) Medullary sponge kidney: Status: Acute Conservative therapy If no improvement would warrant intervention Procedures Date of Service Date of Service: 12/02/20
[2020-12-02] MEDS: Celecoxib 200 MG CAPSULE PO ×2 (15:08→20:18)
[2020-12-02] MEDS: Gabapentin 300 MG CAPSULE 600 MG PO ×2 (15:09→20:19)
[2020-12-02] MEDS: HYDROmorphone HCl 2 MG/ML VIAL IVPUSH ×3 (16:50→23:48)
--- NOTE | 2020-12-02 17:51 | PM.NEUROCN ---
History of Present Illness Data of Consult Service Date: 12/02/20 Primary Care Provider: Unknown Physician HPI Reason for consult: Recurrent seizures This is a 50-year-old woman who apparently has a long history of seizures and is being followed by Dr. Jones in [place], and is currently on phenytoin 100 mg 4 times a day and levetiracetam and 750 mg 4 times a day. She has kidney problems for which she sees Dr. Richter. She was coming to the hospital because of some kidney pain wanting pain medications and had 3 generalized seizures. She says that her seizures are triggered by pain. Etiology of the seizures is not known. She says that she has had previous EEGs at [facility]. She still lethargic and unable to give details of her history other than what I have stated above. Review of Systems Review of Systems: Complaining of flank pain, patient postictal Yes all other systems are reviewed and are negative and Unobtainable due to mental condition [facility] Past Medical History Medical History (Updated 12/01/20 @ 17:28 by Sharlene Miner MD) Epilepsy Hypokalemia Medullary sponge kidney Microscopic hematuria Nephropathy Recurrent urinary tract infection Systemic lupus erythematosus Social History Social History Household Members: Significant Other Housing: Apartment Do you presently have visiting nurse or other home services: No Patient Tobacco Use Status: Current everyday Tobacco user Tobacco use type: Cigarette Smoked in Last 30 Days: Yes Patient Interested in Nicotine Replacement: Yes Patient Given Instructions on How to Stop Smoking: No Second Hand Smoke Exposure: No Use of substances other than those prescribed or required for medical reasons: Yes Substance Use Type: Marijuana Substance Use Frequency: Chronic Longstanding Last Used Substance: Days (ago) Currently Displaying Signs/Symptoms of Drug Intoxication Withdrawal: No Any prior treatment program specific to substance use: No Have you been hit, kicked, punched, or otherwise hurt by someone within the past year? If so, by whom?: No Do you feel safe in your current relationship?: Yes Is there a partner from a previous relationship who is making you feel unsafe now?: No Are you made to feel afraid or neglected: No Advance Directives: No Advance Directives Information Provided: No Do you have thoughts of harming others: None Do you have a plan to hurt others: No Plan Recently lost weight without trying: No Nutrition Risks: No Nutritional Risk Patient : No : No Poor oral hygiene: No Meds Allergies Allergy/AdvReac Type Severity Reaction Status Date / Time atropine [ATROPINE] Allergy Unknown ANAPHYLAXIS Verified 11/20/20 10:29 droperidol [From INAPSINE] Allergy Unknown SEIZURES Verified 11/20/20 10:29 NSAIDS (Non-Steroidal Allergy Unknown RENAL Verified 11/20/20 10:29 Anti-Inflamma FAILURE [NSAIDS] sumatriptan [From IMITREX] Allergy Unknown SEIZURES Verified 11/20/20 10:29 From COMPAZINE Allergy Unknown SEIZURES Uncoded 12/06/19 16:20 From IMITREX Allergy Unknown SEIZURES Uncoded 12/06/19 16:20 From REGLAN Allergy Unknown SEIZURES Uncoded 12/06/19 16:20 From TORADOL Allergy Unknown SEIZURES Uncoded 12/06/19 16:20 From ULTRAM Allergy Unknown SEIZURES Uncoded 12/06/19 16:20 Active Medications: Current Medications Generic Name Dose Route Start Last Admin Trade Name Freq PRN Reason Stop Dose Admin Acetaminophen 650 mg 12/02/20 19:38 Acetaminophen 325 Mg Tablet PO Q6H PRN Pain (Scale Score 1-3) Celecoxib 200 mg 12/02/20 14:00 12/02/20 15:08 Celecoxib 200 Mg Capsule PO 200 mg BID BRISEYDA Administration Enoxaparin Sodium 40 mg 12/02/20 09:00 12/02/20 08:30 Enoxaparin Sodium 40 Mg/0.4 Ml Syringe SUBCUT 40 mg Q24H BRISEYDA Administration Gabapentin 600 mg 12/02/20 15:00 12/02/20 15:09 Gabapentin 300 Mg Capsule PO 600 mg TID BRISEYDA Administration Hydromorphone HCl 2 mg 12/02/20 14:00 Hydromorphone Hcl 2 Mg/Ml Vial IVPUSH Q3H PRN Pain, Severe (Pain Scale 7-10) Protocol Lactated Ringer's 1,000 mls @ 80 mls/hr 12/02/20 08:00 12/02/20 08:38 Lr IVCONT 80 mls/hr .[id number] BRISEYDA Administration Acetaminophen 1,000 mg in 100 mls @ 400 mls/hr 12/02/20 15:00 12/02/20 16:48 Ofirmev IV 12/03/20 03:14 Infused Q6H BRISEYDA Infusion Levetiracetam 750 mg 12/01/20 21:00 12/02/20 16:27 Levetiracetam 500 Mg Tablet PO 750 mg QID BRISEYDA Administration Lorazepam 1 mg 12/01/20 19:39 12/02/20 07:49 Lorazepam 2 Mg/Ml Vial IVPUSH 1 mg Q2H PRN Administration Seizures Melatonin 6 mg 12/01/20 19:41 Melatonin 3 Mg Tablet PO BEDTIME PRN Insomnia Non-Formulary Medication 140 mg 12/01/20 19:45 Erenumab-Aooe SUBCUT Q28D BRISEYDA Omeprazole 20 mg 12/02/20 09:00 12/02/20 08:30 Omeprazole 20 Mg Capsule. PO 20 mg DAILY BRISEYDA Administration Ondansetron HCl 4 mg 12/01/20 19:41 12/02/20 01:06 Ondansetron Hcl 4 Mg/2 Ml Vial IVPUSH 4 mg Q8H PRN Administration Nausea and Vomiting Pharmacy Consult 1 each 12/01/20 12:56 Consult Rx Perform Med Rec MISCELLANE ONCE PRN Consult order Pharmacy Consult 1 each 12/01/20 17:23 Consult Rx Perform Med Rec MISCELLANE ONCE PRN Consult order Phenytoin Sodium 100 mg 12/01/20 21:00 12/02/20 16:29 Phenytoin Sodium Extended 100 Mg Capsule PO 100 mg QID [facility] Administration Promethazine HCl 25 mg 12/01/20 19:38 Promethazine Hcl 25 Mg Tablet PO Q6H PRN nausea/vomiting Ropinirole HCl 1 mg 12/01/20 21:00 12/01/20 22:16 Ropinirole Hcl 1 Mg Tablet PO 1 mg BEDTIME [facility] Administration Senna 17.2 mg 12/01/20 19:41 Sennosides 8.6 Mg Tablet PO BEDTIME PRN Constipation Sodium Chloride 3 ml 12/02/20 00:00 12/02/20 16:34 0.9 % Sodium Chloride Flush 3 Ml Syringe IVFLUSH Not Given QSHIFT [facility] Home Medications Medication Instructions Recorded Confirmed Last Taken Type acetaminophen 325 mg tablet 650 mg PO Q6H PRN 12/01/20 12/01/20 Unknown History erenumab-aooe 140 mg/mL 140 mg SUBCUT QMONTH 12/01/20 12/01/20 11/01/20 History subcutaneous auto-injector gabapentin 300 mg capsule 1 cap PO BID 12/01/20 12/01/20 11/24/20 History hydromorphone 4 mg tablet 4 mg PO Q6H PRN 12/01/20 12/01/20 Unknown History (Dilaudid) levetiracetam 750 mg tablet 1 tab PO QID 12/01/20 12/01/20 12/01/20 History omeprazole 20 mg capsule,delayed 1 cap PO DAILY 12/01/20 12/01/20 12/01/20 History release ondansetron 8 mg disintegrating 1 tab PO Q8H PRN 12/01/20 12/01/20 Unknown History tablet oxycodone 20 mg tablet 1 tab PO 5XD 12/01/20 12/01/20 12/01/20 History phenytoin sodium extended 100 mg 1 cap PO QID 12/01/20 12/01/20 12/01/20 History capsule promethazine 25 mg tablet 1 tab PO Q6H PRN 12/01/20 12/01/20 11/30/20 History ropinirole 1 mg tablet 1 tab PO BEDTIME 12/01/20 12/01/20 11/30/20 History Physical Exam Vital Signs: Vital Signs: Last Vital Signs Temp 97.9 F 12/02/20 15:08 Pulse 80 12/02/20 15:08 Resp 20 12/02/20 15:08 BP 119/76 12/02/20 15:08 Pulse Ox 96 12/02/20 15:08 Body Mass Index 20.5 Const: Other: Appearance: Alert. Patient postictal, confused, states she has flank pain Eyes: Pupils dilated, equal, round and reactive to light. ENT: Pharynx normal. No tongue lacerations Neck: Normal inspection. Neck supple. No lymph nodes noted. No crepitus CVS: Normal heart rate and rhythm. Pulses normal. Normal S1 and S2 Respiratory: No respiratory distress. Breath sounds normal. No Wheezing. No rales Abdomen: Soft and nontender. No rigidity. No distention. Positive CVA tenderness on the right side Skin: Skin warm and dry. Normal skin color. Normal skin turgor. Extremities: No lower extremity edema. No lower extremity edema. No Lacerations. No Rash Neuro: Oriented X 3. No motor deficit. No sensory deficit. Moving all extermities. No slurred speech. Neuro: Other: She is a little lethargic but easily arousable but drowsy. She is oriented and gives me some of her history follows commands. Cranial nerves are normal. Neurological examination is nonfocal. Neck is supple. Results Labs CBC & Chem 7: 12/02/20 07:34 12/02/20 07:34 Labs: Short CBC 12/02/20 Range/Units 07:34 WBC 2.7 L (4.8-10.8) X10*3/uL Hgb 12.7 (12.0-16.0) g/dl Hct 38.2 (37-47) % Plt Count 125 L (160-400) X10*3/uL BMP 12/02/20 07:34 Sodium 135 Potassium 3.8 Chloride 106 Carbon Dioxide 21 L BUN 10 Creatinine 0.76 Calcium 8.3 L D Assessment and Plan (1) Generalized seizure: Status: Acute Multiple seizures. Patient claims to be taking the medications faithfully. Recommend check Dilantin and levetiracetam levels. Continue the current dose of phenytoin 100 mg 4 times a day and levetiracetam 750 mg 4 times a day for now. EEG in the morning (2) Epilepsy: Status: Acute As above. Outpatient followup with her neurologist, Dr. Jones. hospital d#2 50-year-old female with a history of seizure disorder, nephrolithiasis, loin pain hematuria syndrome, medullary sponge kidney, lupus, IgA nephropathy, presneted with R flank pain, possible seizures in ED though thought by ED staff to be non-epileptic # R flank pain - CT scan showed medullary nephrocalcinosis; UA showed microscopic hematuria; Urology consult pending. continue IV fluids + IV hydromorphone [on PO 4 mg q6h prn as outpt]- increased dose by Urology; will also add IV APAP # seizure disorder - per Neurology consult at [facility] by Dr Christiano Velasquez, 04/25/19: Reported sezirue disorder with hx 1 d vEEG 02/18/11 that was normal despite 2 typical spells and a 2 d study 06/14/16 ?that was also normal (but no spells) admitted after incresed number of seiures in setting of difficulty tolerating po meds due to Gi illness. If genuine, may be due to poor po intake of medications. ?However, it is not even clear as to whether the pt has a true epileptic disorder. ?Suspect not given 3 days of negative EEG recordings and 2 spells that were captured with no electrographic changes. Suspect nonepileptic spells - However, pt states she saw outpt neurologist 2 months ago and is thought to have epileptic seizures. continue Keppra + phenytoin, will try to obtain records, Neurology consult # leukopenia - COVID-19 negative. check HIV. monitor # VTE ppx - LMWH ? Procedures Date of Service Date of Service: 12/02/20
[2020-12-02] MEDS: rOPINIRole HCL 1 MG TABLET PO (20:19)
[2020-12-03] VITALS (10 sets, daily range): BP systolic 120–159; BP diastolic 64–87; PULSE 71–89; RESP 16–20; TEMP 35.8–36.9; O2SAT 96–98
--- NOTE | 2020-12-03 | EEG_ITS ---
The waking background activity consists of a moderate voltage 9 to 10 hertz posterior alpha frequency that is seen symmetrically and attenuates well with eye opening while low-voltage fast frequencies predominate anteriorly. Photic stimulation is without activation. Hyperventilation was omitted. No focal, lateralizing, or paroxysmal discharges seen. IMPRESSION: This waking EEG is within normal limits. MD JULIO CESAR Patterson/BERRY / [id number]
[2020-12-03] MEDS: LORazepam 2 MG/ML VIAL 1 MG IVPUSH ×5 (00:31→21:43)
[2020-12-03 06:54] LABS: Hematocrit 37.3 % (37-47); Hemoglobin 12.6 g/dl (12.0-16.0); Mean Corpuscular HGB Conc 33.8 g/dl (31.0-35.0); Mean Corpuscular Hemoglobin 33.4 pg (27.0-33.0); Mean Corpuscular Volume 98.9 fL (80-98); Mean Platelet Volume 12.8 fL (9.4-12.3); Red Blood Count 3.77 X10*6/uL (4.20-5.50); Red Cell Distribution Width 12.8 % (11.0-16.0)
[2020-12-03 07:12] LABS: Anion Gap 10 (12-20); Blood Urea Nitrogen 9 mg/dL (9-16); Carbon Dioxide 26 mmol/L (22-29); Chloride 106 mmol/L (96-108); Creatinine Clr Calc Pharmacy 77.3; Estimated Glomerular Filt Rate > 60; Glucose Random 86 mg/dL (60-115); Potassium 4.1 mmol/L (3.3-5.1); Sodium 138 mmol/L (135-145)
[2020-12-03 07:16] LABS: Platelet Count 92 X10*3/uL (160-400); White Blood Count 2.4 X10*3/uL (4.8-10.8)
[2020-12-03 08:12] LABS: HIV AB/AG Nonreactive (Nonreactive); HIV Num 1 0.11 S/CO (0.00-0.99)
[2020-12-03] MEDS: Enoxaparin Sodium 40 MG/0.4 ML SYRINGE SUBCUT (08:14)
[2020-12-03] MEDS: Omeprazole 20 MG CAPSULE.DR PO (08:14)
[2020-12-03] MEDS: Celecoxib 200 MG CAPSULE PO ×2 (08:14→21:11)
[2020-12-03] MEDS: Phenytoin Sodium Extended 100 MG CAPSULE PO ×4 (08:14→21:11)
[2020-12-03] MEDS: levETIRAcetam 500 MG TABLET 750 MG PO ×4 (08:14→21:12)
[2020-12-03] MEDS: HYDROmorphone HCl 2 MG/ML VIAL IVPUSH ×5 (08:15→22:53)
[2020-12-03] MEDS: Gabapentin 300 MG CAPSULE 600 MG PO ×3 (08:15→21:11)
[2020-12-03] MEDS: 0.9 % Sodium Chloride Flush 3 ML SYRINGE IVFLUSH ×2 (08:15→15:52)
[2020-12-03] MEDS: Lactated Ringers 1,000 ML 80 ML IVCONT ×2 (08:16→21:07)
--- NOTE | 2020-12-03 08:37 | MHC.CM.PN ---
CM met with Patient at bedside. Patient lives in an apartment with her Fiance and she required no services nor DME [employer]. PCP is Dr. Marie from [facility] in [place]. Patient's goal is to return home/no services and CM has initiated and will follow for dc planning.
[2020-12-03 08:51] LABS: Lactate Dehydrogenase 190 U/L (122-220)
[2020-12-03 09:49] LABS: Folate 5.8 ng/mL (> or = 4.0); Vitamin B12 356 pg/mL (200-900)
[2020-12-03 10:36] LABS: Phenytoin Dilantin 22.9 ug/mL (10.0-20.0)
--- NOTE | 2020-12-03 15:40 | P.CNHO_ITS ---
Subjective - Subjective Patient: new to practice Consult date: 12/03/20 Primary Care Provider: Unknown Physician HPI - Consult Narrative Reason for consult: Leukopenia and thrombocytopenia Narrative: Lupis Monroy is a 50 year old female with medullary sponge kidney and sei zure disorder who has been admitted with right flank pain. She says she has this pain recurring for many years and it is related to her kidney disorder and stone formation. She says she lost her left kidney years ago at the time of her delivery. She was never told of low blood counts. Review of Systems - Constitutional Reports fatigue, Reports malaise, Reports weight loss - Cardiovascular Denies chest pain - Respiratory Denies cough - Gastrointestinal Denies diarrhea PMFSH Medical History: Medical History (Last Updated 12/01/20 @ 10:55 by Sharlene Minre MD) Epilepsy Hypokalemia Medullary sponge kidney Microscopic hematuria Nephropathy Recurrent urinary tract infection Systemic lupus erythematosus Social History: Social History (Last Reviewed 11/20/20 @ 13:20 by MARIO Mena) Living Situation History: Household Members: Significant Other Housing: Apartment Do you presently have visiting nurse or other home services: No Tobacco History: Patient Tobacco Use Status: Current everyday Tobacco Tobacco use type: Cigarette Smoked in Last 30 Days: Yes Patient Interested in Nicotine Replacement: Yes Patient Given Instructions on How to Stop Smoking: No Second Hand Smoke Exposure: No Substance Use History: Use of substances other than those prescribed or required for medical reasons : Yes Substance Use Type: Marijuana Substance Use Frequency: Chronic Longstanding Last Used Substance: Days (ago) Currently Displaying Signs/Symptoms of Drug Intoxication Withdrawal: No Any prior treatment program specific to substance use: No Domestic Abuse History: Have you been hit, kicked, punched, or otherwise hurt by someone within the past year? If so, by whom?: No Do you feel safe in your current relationship?: Yes Is there a partner from a previous relationship who is making you feel unsafe now?: No Are you made to feel afraid or neglected: No Advance Directives: Advance Directives: No Advance Directives Information Provided: No Homicidal Assessment: Do you have thoughts of harming others: None Do you have a plan to hurt others: No Plan Nutrition Assessment: Recently lost weight without trying: No Nutrition Risks: No Nutritional Risk Patient : No : No Poor oral hygiene: No Occupation Assessmet: service: No Current occupational status: disabled Home Medications and Allergies Current Medications: Current Medications Generic Name Dose Route Start Last Admin Trade Name Freq PRN Reason Stop Dose Admin Acetaminophen 650 mg 12/02/20 19:38 Acetaminophen 325 Mg Tablet PO Q6H PRN Pain (Scale Score 1-3) Celecoxib 200 mg 12/02/20 14:00 12/03/20 08:14 Celecoxib 200 Mg Capsule PO 200 mg BID BRISEYDA Administration Enoxaparin Sodium 40 mg 12/02/20 09:00 12/03/20 08:14 Enoxaparin Sodium 40 Mg/0.4 Ml Syringe SUBCUT 40 mg Q24H BRISEYDA Administration Gabapentin 600 mg 12/02/20 15:00 12/03/20 08:15 Gabapentin 300 Mg Capsule PO 600 mg TID BRISEYDA Administration Hydromorphone HCl 2 mg 12/02/20 14:00 12/03/20 12:18 Hydromorphone Hcl 2 Mg/Ml Vial IVPUSH 2 mg Q3H PRN Administration Pain, Severe (Pain Scale 7-10) Protocol Lactated Ringer's 1,000 mls @ 80 mls/hr 12/02/20 08:00 12/03/20 08:16 Lr IVCONT 80 mls/hr .[id number] BRISEYDA Administration Levetiracetam 750 mg 12/01/20 21:00 12/03/20 12:17 Levetiracetam 500 Mg Tablet PO 750 mg QID BRISEYDA Administration Lorazepam 1 mg 12/01/20 19:39 12/03/20 14:02 Lorazepam 2 Mg/Ml Vial IVPUSH 1 mg Q2H PRN Administration Seizures Melatonin 6 mg 12/01/20 19:41 Melatonin 3 Mg Tablet PO BEDTIME PRN Insomnia Non-Formulary Medication 140 mg 12/01/20 19:45 Erenumab-Aooe SUBCUT Q28D BRISEYDA Omeprazole 20 mg 12/02/20 09:00 12/03/20 08:14 Omeprazole 20 Mg Capsule.Dr PO 20 mg DAILY BRISEYDA Administration Ondansetron HCl 4 mg 12/01/20 19:41 12/02/20 22:29 Ondansetron Hcl 4 Mg/2 Ml Vial IVPUSH 4 mg Q8H PRN Administration Nausea and Vomiting Pharmacy Consult 1 each 12/01/20 12:56 Consult Rx Perform Med Rec MISCELLANE ONCE PRN Consult order Pharmacy Consult 1 each 12/01/20 17:23 Consult Rx Perform Med Rec MISCELLANE ONCE PRN Consult order Phenytoin Sodium 100 mg 12/01/20 21:00 12/03/20 12:17 Phenytoin Sodium Extended 100 Mg Capsule PO 100 mg QID BRISEYDA Administration Promethazine HCl 25 mg 12/01/20 19:38 Promethazine Hcl 25 Mg Tablet PO Q6H PRN nausea/vomiting Ropinirole HCl 1 mg 12/01/20 21:00 12/02/20 20:19 Ropinirole Hcl 1 Mg Tablet PO 1 mg BEDTIME BRISEYDA Administration Senna 17.2 mg 12/01/20 19:41 Sennosides 8.6 Mg Tablet PO BEDTIME PRN Constipation Sodium Chloride 3 ml 12/02/20 00:00 12/03/20 08:15 0.9 % Sodium Chloride Flush 3 Ml Syringe IVFLUSH 3 ml QSHIFT [facility] Administration Home Medications Medication Instructions Recorded Confirmed Type acetaminophen 325 mg tablet 650 mg PO Q6H PRN 12/01/20 12/01/20 History erenumab-aooe 140 mg/mL 140 mg SUBCUT QMONTH 12/01/20 12/01/20 History subcutaneous auto-injector gabapentin 300 mg capsule 1 cap PO BID 12/01/20 12/01/20 History hydromorphone 4 mg tablet 4 mg PO Q6H PRN 12/01/20 12/01/20 History (Dilaudid) levetiracetam 750 mg tablet 1 tab PO QID 12/01/20 12/01/20 History omeprazole 20 mg capsule,delayed 1 cap PO DAILY 12/01/20 12/01/20 History release ondansetron 8 mg disintegrating 1 tab PO Q8H PRN 12/01/20 12/01/20 History tablet oxycodone 20 mg tablet 1 tab PO 5XD 12/01/20 12/01/20 History phenytoin sodium extended 100 mg 1 cap PO QID 12/01/20 12/01/20 History capsule promethazine 25 mg tablet 1 tab PO Q6H PRN 12/01/20 12/01/20 History ropinirole 1 mg tablet 1 tab PO BEDTIME 12/01/20 12/01/20 History Allergies Allergy/AdvReac Type Severity Reaction Status Date / Time atropine [ATROPINE] Allergy Unknown ANAPHYLAXIS Verified 11/20/20 10:29 droperidol [From INAPSINE] Allergy Unknown SEIZURES Verified 11/20/20 10:29 NSAIDS (Non-Steroidal Allergy Unknown RENAL Verified 11/20/20 10:29 Anti-Inflamma FAILURE [NSAIDS] sumatriptan [From IMITREX] Allergy Unknown SEIZURES Verified 11/20/20 10:29 From COMPAZINE Allergy Unknown SEIZURES Uncoded 12/06/19 16:20 From IMITREX Allergy Unknown SEIZURES Uncoded 12/06/19 16:20 From REGLAN Allergy Unknown SEIZURES Uncoded 12/06/19 16:20 From TORADOL Allergy Unknown SEIZURES Uncoded 12/06/19 16:20 From ULTRAM Allergy Unknown SEIZURES Uncoded 12/06/19 16:20 Physical Exam Vital signs: Vital Signs Temp 96.5 F L 12/03/20 15:08 Pulse 89 12/03/20 15:08 Resp 20 12/03/20 15:08 BP 140/75 H 12/03/20 15:08 Pulse Ox 97 12/03/20 15:08 Intake & Output 12/02/20 12/03/20 12/03/20 18:59 06:59 18:59 Intake Total 2485 / 4118.333 1633.333 / 4118.333 1197.333 / 1197.333 Output Total 300 / 700 400 / 700 Balance 2185 / 3418.333 1233.333 / 3418.333 1197.333 / 1197.333 Urine Output (Average ml/kg/hr) 0.46 0.61 0.61 Intake: Intake, Oral Amount 500 / 1100 600 / 1100 240 / 240 Intake, IV Amount 1984 / 3018.333 1033.333 / 3018.333 957.333 / 957.333 Acetaminophen 1,000 mg In 100 100 / 200 100 / 200 ml @ 400 mls/hr IV Q6H RBISEYDA Rx#: [id number] levETIRAcetam in NaCl (iso-os) 100 / 100 1,500 mg In 100 ml @ 400 mls/hr IV ONCE ONE Rx#:[id number] 0.9 % Sodium Chloride 1,000 ml 1000 / 1000 @ 999 mls/hr IVCONT .Q1H1M ONE Rx#:[id number] Dextrose 5 % and 0.45 % NaCl 1, 785 / 785 000 ml @ 75 mls/hr IVCONT . [id number] BRISEYDA Rx#:[id number] Lactated Ringers 1,000 ml @ 80 933.333 / 933.333 957.333 / 957.333 mls/hr IVCONT .[id number] [facility] Rx#: [id number] Output: Output, Urine Amount 300 / 700 400 / 700 Other: Meal Refused No NPO No Breakfast % Eaten 50% 75% Lunch % Eaten 75% Number of Unmeasured Voids 1 Urine Bathroom Urine Color Yellow Weight 54.431 kg - Constitutional Present: mild distress, thin - Routine HEENT Exam Head: Present: normal inspection Eye: Present: conjunctivae pale - Routine Neck Exam Absent: lymphadenopathy - Routine Respiratory Exam Present: CTAB - Routine Cardiovascular Exam Cardiovascular: Present: S2 - Routine Abdominal Exam Present: soft Hem/Onc Consult Result - Labs CBC & Chem 7: 12/03/20 06:36 12/03/20 06:36 Labs: Short CBC 12/03/20 Range/Units 06:36 WBC 2.4 L (4.8-10.8) X10*3/uL Hgb 12.6 (12.0-16.0) g/dl Hct 37.3 (37-47) % Plt Count 92 L D (160-400) X10*3/uL BMP 12/03/20 06:36 Sodium 138 Potassium 4.1 Chloride 106 Carbon Dioxide 26 BUN 9 Creatinine 0.74 Calcium 9.0 D Assessment and Plan Patient Active problem list reviewed?: Yes (1) Bicytopenia Status: Acute Assessment and plan: 1. This is a 50-year-old woman with multiple medical problems admitted for flank pain. The only previous blood work is in 2010 and she did not have leukopenia or thrombocytopenia. She also carries a diagnosis of SLE, autoimmune cytopenias is a possibility. There are no hematinic deficiencies. I will obtain blood counts from her PCP to see if there is any recent blood work. She does not have any chronic constitutional symptoms. Peripheral smear does not show any mature or abnormal cells. There is no evidence of chronic liver disease or hypersplenism. This can be followed up as an outpatient. I thank you for this consultation. - Time Spent With Patient Time Spent with Patient (in minutes): 20
--- NOTE | 2020-12-03 15:44 | P.PNIM_ITS ---
Subjective Subjective Date of Service: 12/03/20 Interval History: Still c/o R flank pain, also severe epigastric pain and nausea Review of Systems Review of Systems: Yes all other systems are reviewed and are negative Physical Exam Vital Signs: Vital Signs: Last Vital Signs Temp 96.5 F L 12/03/20 15:08 Pulse 89 12/03/20 15:08 Resp 20 12/03/20 15:08 BP 140/75 H 12/03/20 15:08 Pulse Ox 97 12/03/20 15:08 Body Mass Index 20.5 Gen: in no acute distress HEENT: sclera anicteric, moist mucus membranes Neck: supple Lungs: clear to auscultation bilaterally Heart: regular rate and rhythm, no murmurs Abd: soft, epigastric tenderness, non-distended : R CVA tenderness Ext: no edema Skin: warm/well-perfused Neuro: alert and oriented x3, no focal findings Psych: appropriate affect Objective Data Active Medications Acetaminophen (Acetaminophen 325 Mg Tablet) 650 mg PO Q6H PRN PRN Reason: Pain (Scale Score 1-3) Celecoxib (Celecoxib 200 Mg Capsule) 200 mg PO BID [facility] Last Admin: 12/03/20 08:14 Dose: 200 mg Documented by: WILLY Enoxaparin Sodium (Enoxaparin Sodium 40 Mg/0.4 Ml Syringe) 40 mg SUBCUT Q24H [facility] Last Admin: 12/03/20 08:14 Dose: 40 mg Documented by: WILLY Gabapentin (Gabapentin 300 Mg Capsule) 600 mg PO TID [facility] Last Admin: 12/03/20 08:15 Dose: 600 mg Documented by: WILLY Hydromorphone HCl (Hydromorphone Hcl 2 Mg/Ml Vial) 2 mg IVPUSH Q3H PRN; Protocol PRN Reason: Pain, Severe (Pain Scale 7-10) Last Admin: 12/03/20 12:18 Dose: 2 mg Documented by: WILLY Lactated Ringer's (Lr) 1,000 mls @ 80 mls/hr IVCONT .[id number] [facility] Last Admin: 12/03/20 08:16 Dose: 80 mls/hr Documented by: WILLY Levetiracetam (Levetiracetam 500 Mg Tablet) 750 mg PO QID [facility] Last Admin: 12/03/20 12:17 Dose: 750 mg Documented by: WILLY Lorazepam (Lorazepam 2 Mg/Ml Vial) 1 mg IVPUSH Q2H PRN PRN Reason: Seizures Last Admin: 12/03/20 14:02 Dose: 1 mg Documented by: WILLY Melatonin (Melatonin 3 Mg Tablet) 6 mg PO BEDTIME PRN PRN Reason: Insomnia Non-Formulary Medication (Erenumab-Aooe) 140 mg SUBCUT Q28D [facility] Omeprazole (Omeprazole 20 Mg Capsule.Dr) 20 mg PO DAILY [facility] Last Admin: 12/03/20 08:14 Dose: 20 mg Documented by: WILLY Ondansetron HCl (Ondansetron Hcl 4 Mg/2 Ml Vial) 4 mg IVPUSH Q8H PRN PRN Reason: Nausea and Vomiting Last Admin: 12/02/20 22:29 Dose: 4 mg Documented by: NATALYA Pharmacy Consult (Consult Rx Perform Med Rec) 1 each MISCELLANE ONCE PRN PRN Reason: Consult order Pharmacy Consult (Consult Rx Perform Med Rec) 1 each MISCELLANE ONCE PRN PRN Reason: Consult order Phenytoin Sodium (Phenytoin Sodium Extended 100 Mg Capsule) 100 mg PO QID [facility] Last Admin: 12/03/20 12:17 Dose: 100 mg Documented by: WILLY Promethazine HCl (Promethazine Hcl 25 Mg Tablet) 25 mg PO Q6H PRN PRN Reason: nausea/vomiting Ropinirole HCl (Ropinirole Hcl 1 Mg Tablet) 1 mg PO BEDTIME [facility] Last Admin: 12/02/20 20:19 Dose: 1 mg Documented by: NATALYA Senna (Sennosides 8.6 Mg Tablet) 17.2 mg PO BEDTIME PRN PRN Reason: Constipation Sodium Chloride (0.9 % Sodium Chloride Flush 3 Ml Syringe) 3 ml IVFLUSH QSHIFT [facility] Last Admin: 12/03/20 08:15 Dose: 3 ml Documented by: WILLY Labs CBC & Chem 7: 12/03/20 06:36 12/03/20 06:36 Labs: Laboratory Results - last 24 hr 12/03/20 12/03/20 12/03/20 06:36 06:36 06:36 MCV 98.9 H MCH 33.4 H MCHC 33.8 RDW 12.8 Plt Count 92 L D MPV 12.8 H Absolute Nucleated RBC 0.000 Nucleated RBC % (auto) 0.0 Smear Path Review SEE NOTE Anion Gap 10 L Estim Creat Clear Calc 77.3 Estimated GFR > 60 Random Glucose 86 Calcium 9.0 D Lactate Dehydrogenase 190 Vitamin B12 Folate Phenytoin HIV 1&2 Ab/P24 Ag 4thGn Nonreactive 12/03/20 12/03/20 06:36 09:35 MCV MCH MCHC RDW Plt Count MPV Absolute Nucleated RBC Nucleated RBC % (auto) Smear Path Review Anion Gap Estim Creat Clear Calc Estimated GFR Random Glucose Calcium Lactate Dehydrogenase Vitamin B12 356 Folate 5.8 Phenytoin 22.9 H HIV 1&2 Ab/P24 Ag 4thGn Assessment and Plan (1) Acute flank pain: Status: Acute Assessment and Plan: hospital d#3 50-year-old female with a history of seizure disorder, nephrolithiasis, loin pain hematuria syndrome, medullary sponge kidney, lupus (although pt states this was ultimately ruled out), IgA nephropathy, presneted with R flank pain, possible seizures in ED though thought by ED staff to be non-epileptic # R flank pain - CT scan showed medullary nephrocalcinosis; UA showed microscopic hematuria; Urology consulted.. continue IV fluids + IV hydromorphone [on PO 4 mg q6h prn as outpt] # seizure disorder - per Neurology consult [place] [facility] [place] Christiano Velasquez, 04/25/19: Reported sezirue disorder with hx 1 d vEEG 02/18/11 that was normal despite 2 typical spells and a 2 d study 06/14/16 ?that was also normal (but no spells) admitted after incresed number of seiures in setting of difficulty tolerating po meds due to Gi illness. If genuine, may be due to poor po intake of medications. ?However, it is not even clear as to whether the pt has a true epileptic disorder. ?Suspect not given 3 days of negative EEG recordings and 2 spells that were captured with no electrographic changes. Suspect nonepileptic spells - However, pt states she saw outpt neurologist 2 months ago and is thought to have epileptic seizures. continue Keppra + phenytoin, will try to obtain records, Neurology consulted, EEG ordered, will check phenytoin + Keppra levels # leukopenia, thrombocyotpenia - COVID-19 negative, HIV negative. related to SLE? Heme consult # fentanyl positive on Utox - pt denies using heroin, fentanyl, or any other drug other than cannabis. GC/MS pending. pt is on hydromorphone as outpt as above # epigastric pain - GI consult # VTE ppx - LMWH ? Quality Stroke Does the patient have a stroke diagnosis?: No VTE Prior VTE?: No VTE Risk Level:: Medical - moderate - high VTE Device Contraindication: N/A - Device Ordered VTE Drug Contraindication: Treatment Not Indicated
--- NOTE | 2020-12-03 18:34 | PC.NURSE ---
Patient has been crying on and off throughout the 7a-7pm shift. Pt reports 10/10 pain to R flank with little to no relief from 2mg IVP Dilaudid. Pt often states that she feels like she is about to have a seizure because of the pain. PRN ativan given per protocol. Dr. Longoria and Dr. Stanton notified. Dr. Stanton came to floor to assess patient and stated that he would adjust PRN Dilaudid frequency. Also this evening, patient was walking to the BR and slowly lowered herself to the ground as a result of the pain. This nurse and two ASSISTANT PRESS OPERATOR's helped patient to the WC as assisted her to the toilet and then back to bed via WC. Vital signs WNL.
--- NOTE | 2020-12-03 19:04 | P.PNUR_ITS ---
Subjective Subjective Date of Service: 12/04/20 Interval history: Persistent right flank pain Increasing narcotic need Will plan for intervention with cystoscopy, retrograde and ureteroscopy tomorrow She understands in this circumstance intervention may not reveal the underlying cause of her current pain crisis Physical Exam Vital Signs: Vital Signs: Last Vital Signs Temp 98.1 F 12/04/20 09:30 Pulse 74 12/04/20 09:30 Resp 16 12/04/20 09:30 BP 148/86 H 12/04/20 09:30 Pulse Ox 97 12/04/20 09:30 Body Mass Index 20.5 Const: General: cooperative, healthy appearing, comfortable and no acute distress Orientation/consciousness: patient oriented x3 HENMT: Face and sinus: Yes normal facial exam Mouth: moist mucous membranes Neck: Neck: Yes normal visual inspection, Yes full ROM and Yes trachea midline Chest: Chest palpation & inspection: normal inspection of the chest Resp: Effort & Inspection: normal respiratory effort, able to speak in complete sentences and no respiratory distress GI: Inspection: Yes normal to inspection Back/Spine/Pelvis: Cervical Spine: normal cervical lordosis Thoracic/Lumbar Spine: thoracic and lumbar spine normal to inspection Skin: General skin exam: no rashes or lesions noted Neuro: General: patient oriented x3, gait normal, tone normal and moves all extremities Extrem: General: Yes normal to inspection and Yes capillary refill normal Urology Results Labs CBC & Chem 7: 12/04/20 06:17 12/03/20 06:36 Labs: Laboratory Results - last 24 hr 12/03/20 12/03/20 12/04/20 06:36 09:35 06:17 WBC 2.8 L RBC 3.70 L Hgb 12.2 Hct 37.0 MCV 100.0 H MCH 33.0 MCHC 33.0 RDW 12.7 Plt Count 116 L D MPV 12.7 H Immature Gran % (Auto) 0.0 Neut % (Auto) 45.0 Lymph % (Auto) 41.4 H Cottle % (Auto) 7.1 Eos % (Auto) 6.1 H Baso % (Auto) 0.4 Lymph # (Auto) 1.2 Cottle # (Auto) 0.2 Eos # (Auto) 0.2 Baso # (Auto) 0.0 Abs Immat Gran (auto) 0.00 Absolute Neuts (auto) 1.3 L Absolute Nucleated RBC 0.000 Nucleated RBC % (auto) 0.0 Smear Path Review SEE NOTE POC Glucose Phenytoin 22.9 H 12/04/20 08:04 WBC RBC Hgb Hct MCV MCH MCHC RDW Plt Count MPV Immature Gran % (Auto) Neut % (Auto) Lymph % (Auto) Cottle % (Auto) Eos % (Auto) Baso % (Auto) Lymph # (Auto) Cottle # (Auto) Eos # (Auto) Baso # (Auto) Abs Immat Gran (auto) Absolute Neuts (auto) Absolute Nucleated RBC Nucleated RBC % (auto) Smear Path Review POC Glucose 84 Phenytoin Progress Note: A&P Assessment and plan (1) Medullary sponge kidney: Status: Acute (2) Acute flank pain: Status: Acute Assessment and Plan: Ureteroscopy We discussed the nature of the decision and reasonable alternatives for performing the above surgery. Interventions include chemical dissolution, ESWL, ureteroscopy with laser lithotripsy and stent placement, PCNL. Options such as medical therapy were discussed. The relative uncertainties and benefits related to each alternate procedure were adequately discussed. General surgical risks including, but not limited to, pain, bleeding, infection, myocardial infarction, pulmonary embolus, deep vein thrombosis and cerebrovascular accident which may result in further hospitalization were discussed. Full disclosure of the procedure as well as all major risks, benefits and complications were discussed including but not limited to damage to the urethra, bladder and kidney infection, damage to the ureter, stent migration or malposition, scarring to the renal pelvis, remnant stone fragments, subsequent stone passage with need for secondary procedures. The overall secondary proc edure rate is approximately 10-15%. The success rate of the procedure was discussed. Success of the procedure in the short-term does not necessarily guarantee that long-term success will be maintained. Suitable follow up will need to be maintained. The patient showed understanding of discussion and wishes to proceed with - cystoscopy, retrograde, ureteroscopy, possible lithotripsy/stone basketing and stent on the right side Fall Risk Details Current Medications: Current Medications Generic Name Dose Route Start Last Admin Trade Name Freq PRN Reason Stop Dose Admin Acetaminophen 650 mg 12/02/20 19:38 Acetaminophen 325 Mg Tablet PO Q6H PRN Pain (Scale Score 1-3) Celecoxib 200 mg 12/02/20 14:00 12/04/20 08:22 Celecoxib 200 Mg Capsule PO 200 mg BID BRISEYDA Administration Enoxaparin Sodium 40 mg 12/02/20 09:00 12/04/20 08:22 Enoxaparin Sodium 40 Mg/0.4 Ml Syringe SUBCUT 40 mg Q24H BRISEYDA Administration Gabapentin 600 mg 12/02/20 15:00 12/04/20 08:22 Gabapentin 300 Mg Capsule PO 600 mg TID BRISEYDA Administration Hydromorphone HCl 2 mg 12/03/20 22:20 12/04/20 08:18 Hydromorphone Hcl 2 Mg/Ml Vial IVPUSH 2 mg Q2H PRN Administration Pain, Severe (Pain Scale 7-10) Protocol Lactated Ringer's 1,000 mls @ 80 mls/hr 12/02/20 08:00 12/04/20 08:27 Lr IVCONT 80 mls/hr .[id number] BRISEYDA Administration Levetiracetam 750 mg 12/01/20 21:00 12/04/20 08:22 Levetiracetam 500 Mg Tablet PO 750 mg QID BRISEYDA Administration Lorazepam 1 mg 12/01/20 19:39 12/04/20 09:49 Lorazepam 2 Mg/Ml Vial IVPUSH 1 mg Q2H PRN Administration Seizures Melatonin 6 mg 12/01/20 19:41 12/03/20 21:12 Melatonin 3 Mg Tablet PO 6 mg BEDTIME PRN Administration Insomnia Non-Formulary Medication 140 mg 12/01/20 19:45 Erenumab-Aooe SUBCUT Q28D BRISEYDA Omeprazole 20 mg 12/02/20 09:00 12/04/20 08:22 Omeprazole 20 Mg Capsule.Dr PO 20 mg DAILY BRISEYDA Administration Ondansetron HCl 4 mg 12/01/20 19:41 12/02/20 22:29 Ondansetron Hcl 4 Mg/2 Ml Vial IVPUSH 4 mg Q8H PRN Administration Nausea and Vomiting Pharmacy Consult 1 each 12/01/20 12:56 Consult Rx Perform Med Rec MISCELLANE ONCE PRN Consult order Pharmacy Consult 1 each 12/01/20 17:23 Consult Rx Perform Med Rec MISCELLANE ONCE PRN Consult order Phenytoin Sodium 100 mg 12/01/20 21:00 12/04/20 08:22 Phenytoin Sodium Extended 100 Mg Capsule PO 100 mg QID BRISEYDA Administration Promethazine HCl 25 mg 12/01/20 19:38 Promethazine Hcl 25 Mg Tablet PO Q6H PRN nausea/vomiting Ropinirole HCl 1 mg 12/01/20 21:00 12/03/20 21:11 Ropinirole Hcl 1 Mg Tablet PO 1 mg BEDTIME BRISEYDA Administration Senna 17.2 mg 12/01/20 19:41 Sennosides 8.6 Mg Tablet PO BEDTIME PRN Constipation Sodium Chloride 3 ml 12/02/20 00:00 12/04/20 08:22 0.9 % Sodium Chloride Flush 3 Ml Syringe IVFLUSH 3 ml QSHIFT BRISEYDA Administration Time Spent With Patient Time: Total time spent is greater than 50% in coordination of care (as documented) at patient's floor/unit and/or counseling patient: Time with patient: 15 - 24 minutes Progress Note: Quality Stroke Does the patient have a stroke diagnosis?: No
[2020-12-03] MEDS: rOPINIRole HCL 1 MG TABLET PO (21:11)
[2020-12-03] MEDS: Melatonin 3 MG TABLET 6 MG PO (21:12)
[2020-12-04] VITALS (20 sets, daily range): BP systolic 115–148; BP diastolic 64–95; PULSE 68–104; RESP 16–20; TEMP 36.1–37.2; O2SAT 95–99; BMI 20.5
[2020-12-04] MEDS: HYDROmorphone HCl 2 MG/ML VIAL IVPUSH ×8 (01:49→23:34)
[2020-12-04 06:42] LABS: MANUAL DIFF FLAG NO
[2020-12-04 06:48] LABS: Basophils Percent Auto 0.4 % (0-2); Eosinophils Absolute Auto 0.2 X10*3/uL (0.0-0.4); Eosinophils Percent Auto 6.1 % (0-4); Hemoglobin 12.2 g/dl (12.0-16.0); Lymphocytes Absolute Auto 1.2 X10*3/uL (1.2-4.9); Lymphocytes Percent Auto 41.4 % (20-40); Mean Platelet Volume 12.7 fL (9.4-12.3); Monocytes Absolute Auto 0.2 X10*3/uL (0.1-1.2); Monocytes Percent Auto 7.1 % (2-11); Neutrophils Absolute Auto 1.3 X10*3/uL (2.0-8.3); Platelet Count 116 X10*3/uL (160-400); Red Cell Distribution Width 12.7 % (11.0-16.0); White Blood Count 2.8 X10*3/uL (4.8-10.8)
[2020-12-04 08:08] LABS: Glucose, Whole Blood 84 mg/dL (60-115)
[2020-12-04] MEDS: levETIRAcetam 500 MG TABLET 750 MG PO ×3 (08:22→20:13)
[2020-12-04] MEDS: Omeprazole 20 MG CAPSULE.DR PO (08:22)
[2020-12-04] MEDS: Enoxaparin Sodium 40 MG/0.4 ML SYRINGE SUBCUT (08:22)
[2020-12-04] MEDS: Phenytoin Sodium Extended 100 MG CAPSULE PO ×3 (08:22→20:15)
[2020-12-04] MEDS: 0.9 % Sodium Chloride Flush 3 ML SYRINGE IVFLUSH (08:22)
[2020-12-04] MEDS: Gabapentin 300 MG CAPSULE 600 MG PO ×2 (08:22→20:15)
[2020-12-04] MEDS: Celecoxib 200 MG CAPSULE PO ×2 (08:22→20:15)
[2020-12-04] MEDS: Lactated Ringers 1,000 ML 80 ML IVCONT (08:27)
--- NOTE | 2020-12-04 08:35 | PC.NURSE ---
This AM, patient stated that she felt like she was going to have a seizure. This nurse left the room to obtain the PRN ativan ordered for seizures, and upon return to the room 3-4 minutes later, patients arms and legs were shaking, patient's eyes were closed and she was non-responsive. Rapid response was called. Vitals obtained and WNL, BP 142/98, HR 76, SpO2 97% on RA, RR 16, oral temperature 98.1. POC obtained and was 84. Dr. Longoria arrived and assessed patient. MD stated not to give PRN ativan, but to give PRN Dilaudid instead. PRN IVP Dilaudid administered. Once patient was awake and alert minutes later, scheduled morning meds administered as ordered, including seizure mediations. Patient reported 10/10 R flank pain. Pt is now A&Ox4.
[2020-12-04] MEDS: LORazepam 2 MG/ML VIAL 1 MG IVPUSH ×3 (09:49→22:42)
--- NOTE | 2020-12-04 10:04 | P.PNIM_ITS ---
Subjective Subjective Date of Service: 12/04/20 Interval History: rapid response called this morning for seizure-like activity = generalized shaking for 3 pt was awake and alert immediately afterwards and moving all extremities c/o R flank pain, extremely anxious all night pt felt like I was going to have a seizure Review of Systems Review of Systems: Yes all other systems are reviewed and are negative Physical Exam Vital Signs: Vital Signs: Last Vital Signs Temp 98.1 F 12/04/20 09:30 Pulse 74 12/04/20 09:30 Resp 16 12/04/20 09:30 BP 148/86 H 12/04/20 09:30 Pulse Ox 97 12/04/20 09:30 Body Mass Index 20.5 Gen: nontoxic HEENT: sclera anicteric, moist mucus membranes Neck: supple Lungs: clear to auscultation bilaterally Heart: regular rate and rhythm, no murmurs Abd: soft, epigastric tenderness, non-distended : R CVA tenderness Ext: no edema Skin: warm/well-perfused Neuro: alert and oriented x3, no focal findings Psych: anxious Objective Data Active Medications Acetaminophen (Acetaminophen 325 Mg Tablet) 650 mg PO Q6H PRN PRN Reason: Pain (Scale Score 1-3) Celecoxib (Celecoxib 200 Mg Capsule) 200 mg PO BID [facility] Last Admin: 12/04/20 08:22 Dose: 200 mg Documented by: WILLY Enoxaparin Sodium (Enoxaparin Sodium 40 Mg/0.4 Ml Syringe) 40 mg SUBCUT Q24H [facility] Last Admin: 12/04/20 08:22 Dose: 40 mg Documented by: WILLY Gabapentin (Gabapentin 300 Mg Capsule) 600 mg PO TID [facility] Last Admin: 12/04/20 08:22 Dose: 600 mg Documented by: WILLY Hydromorphone HCl (Hydromorphone Hcl 2 Mg/Ml Vial) 2 mg IVPUSH Q2H PRN; Protocol PRN Reason: Pain, Severe (Pain Scale 7-10) Last Admin: 12/04/20 08:18 Dose: 2 mg Documented by: WILLY Lactated Ringer's (Lr) 1,000 mls @ 80 mls/hr IVCONT .[id number] [facility] Last Admin: 12/04/20 08:27 Dose: 80 mls/hr Documented by: WILLY Levetiracetam (Levetiracetam 500 Mg Tablet) 750 mg PO QID [facility] Last Admin: 12/04/20 08:22 Dose: 750 mg Documented by: WILLY Lorazepam (Lorazepam 2 Mg/Ml Vial) 1 mg IVPUSH Q2H PRN PRN Reason: Seizures Last Admin: 12/04/20 09:49 Dose: 1 mg Documented by: WILLY Melatonin (Melatonin 3 Mg Tablet) 6 mg PO BEDTIME PRN PRN Reason: Insomnia Last Admin: 12/03/20 21:12 Dose: 6 mg Documented by: ABNERASY Non-Formulary Medication (Erenumab-Aooe) 140 mg SUBCUT Q28D [facility] Omeprazole (Omeprazole 20 Mg Capsule.Dr) 20 mg PO DAILY [facility] Last Admin: 12/04/20 08:22 Dose: 20 mg Documented by: WILLY Ondansetron HCl (Ondansetron Hcl 4 Mg/2 Ml Vial) 4 mg IVPUSH Q8H PRN PRN Reason: Nausea and Vomiting Last Admin: 12/02/20 22:29 Dose: 4 mg Documented by: NATALYA Pharmacy Consult (Consult Rx Perform Med Rec) 1 each MISCELLANE ONCE PRN PRN Reason: Consult order Pharmacy Consult (Consult Rx Perform Med Rec) 1 each MISCELLANE ONCE PRN PRN Reason: Consult order Phenytoin Sodium (Phenytoin Sodium Extended 100 Mg Capsule) 100 mg PO QID [facility] Last Admin: 12/04/20 08:22 Dose: 100 mg Documented by: WILLY Promethazine HCl (Promethazine Hcl 25 Mg Tablet) 25 mg PO Q6H PRN PRN Reason: nausea/vomiting Ropinirole HCl (Ropinirole Hcl 1 Mg Tablet) 1 mg PO BEDTIME [facility] Last Admin: 12/03/20 21:11 Dose: 1 mg Documented by: JYOTSNA Senna (Sennosides 8.6 Mg Tablet) 17.2 mg PO BEDTIME PRN PRN Reason: Constipation Sodium Chloride (0.9 % Sodium Chloride Flush 3 Ml Syringe) 3 ml IVFLUSH QSHIFT [facility] Last Admin: 12/04/20 08:22 Dose: 3 ml Documented by: WILLY Labs CBC & Chem 7: 12/04/20 06:17 12/03/20 06:36 Labs: Laboratory Results - last 24 hr 12/03/20 12/03/20 12/04/20 06:36 09:35 06:17 MCV 100.0 H MCH 33.0 MCHC 33.0 RDW 12.7 Plt Count 116 L D MPV 12.7 H Immature Gran % (Auto) 0.0 Neut % (Auto) 45.0 Lymph % (Auto) 41.4 H [place] % (Auto) 7.1 Eos % (Auto) 6.1 H Baso % (Auto) 0.4 Lymph # (Auto) 1.2 [place] # (Auto) 0.2 Eos # (Auto) 0.2 Baso # (Auto) 0.0 Abs Immat Gran (auto) 0.00 Absolute Neuts (auto) 1.3 L Absolute Nucleated RBC 0.000 Nucleated RBC % (auto) 0.0 Smear Path Review SEE NOTE POC Glucose Phenytoin 22.9 H 12/04/20 08:04 MCV MCH MCHC RDW Plt Count MPV Immature Gran % (Auto) Neut % (Auto) Lymph % (Auto) [place] % (Auto) Eos % (Auto) Baso % (Auto) Lymph # (Auto) [place] # (Auto) Eos # (Auto) Baso # (Auto) Abs Immat Gran (auto) Absolute Neuts (auto) Absolute Nucleated RBC Nucleated RBC % (auto) Smear Path Review POC Glucose 84 Phenytoin EEG 12/03/20 IMPRESSION:? This waking EEG is within normal limits. Assessment and Plan (1) Acute flank pain: Status: Acute Assessment and Plan: hospital d#4 50-year-old female with a history of seizure disorder, nephrolithiasis, loin pain hematuria syndrome, medullary sponge kidney, lupus (although pt states this was ultimately ruled out), IgA nephropathy, presneted with R flank pain, possible seizures in ED though thought by ED staff to be non-epileptic # R flank pain - CT scan showed medullary nephrocalcinosis; UA showed microscopic hematuria; Urology consulted. continue IV fluids + IV hydromorphone [on PO 4 mg q6h prn as outpt]. ?cystoscopy # seizure disorder - per Neurology consult [place] [facility] [place] Christiano Velasquez, 04/25/19: Reported sezirue disorder with hx 1 d vEEG 02/18/11 that was normal despite 2 typical spells and a 2 d study 06/14/16 ?that was also normal (but no spells) admitted after incresed number of seiures in setting of difficulty tolerating po meds due to Gi illness. If genuine, may be due to poor po intake of medications. ?However, it is not even clear as to whether the pt has a true epileptic disorder. ?Suspect not given 3 days of negative EEG recordings and 2 spells that were captured with no electrographic changes. Suspect nonepileptic spells - However, pt states she saw outpt neurologist 2 months ago and is thought to have epileptic seizures. continue Keppra + phenytoin, will try to obtain records, Neurology consulted, EEG normal, phenytoin therapeutic, Keppra level pending. This morning's event was not clinically consistent with an epileptic seizure. # leukopenia, thrombocyotpenia - COVID-19 negative, HIV negative. related to SLE? Heme consulted; outpt f/u; ?association with Keppra? # fentanyl positive on Utox - pt denies using heroin, fentanyl, or any other drug other than cannabis. GC/MS pending. pt is on hydromorphone as outpt as above # epigastric pain - GI consult # VTE ppx - LMWH ? Quality Stroke Does the patient have a stroke diagnosis?: No VTE Prior VTE?: No VTE Risk Level:: Medical - moderate - high VTE Device Contraindication: N/A - Device Ordered VTE Drug Contraindication: Treatment Not Indicated
[2020-12-04] MEDS: Tranexamic Acid 1,000 MG in 0.9 % Sodium Chloride 50 ML 360 MG IV (12:45)
--- NOTE | 2020-12-04 15:26 | HO.ANESPROP2 ---
[facility] Active Problems Active Problems: All Active Problems (Updated 12/03/20 @ 15:54 by Evelyn Madsen MD) Bicytopenia (Acute) Acute flank pain (Acute) Generalized seizure (Acute) Epilepsy (Acute) Medullary sponge kidney (Acute) Past Medical History Medical History (Updated 12/03/20 @ 15:54 by Evelyn Madsen MD) Epilepsy Hypokalemia Medullary sponge kidney Microscopic hematuria Nephropathy Recurrent urinary tract infection Systemic lupus erythematosus Functional capacity: independent ambulation Patient : No Surgical History History of Problems with Anesthesia: No Social History Social History (Updated 12/04/20 @ 16:23 by Joceline Gilbert MD) Household Members: Significant Other Housing: Apartment Do you presently have visiting nurse or other home services: No Patient Tobacco Use Status: Current everyday Tobacco user Tobacco use type: Cigarette Smoked in Last 30 Days: Yes Patient Interested in Nicotine Replacement: Yes Patient Given Instructions on How to Stop Smoking: No Second Hand Smoke Exposure: No Use of substances other than those prescribed or required for medical reasons: Yes Substance Use Type: Marijuana Substance Use Frequency: Chronic Longstanding Last Used Substance: Days (ago) Currently Displaying Signs/Symptoms of Drug Intoxication Withdrawal: No Any prior treatment program specific to substance use: No Have you been hit, kicked, punched, or otherwise hurt by someone within the past year? If so, by whom?: No Do you feel safe in your current relationship?: Yes Is there a partner from a previous relationship who is making you feel unsafe now?: No Are you made to feel afraid or neglected: No Advance Directives: No Advance Directives Information Provided: No Do you have thoughts of harming others: None Do you have a plan to hurt others: No Plan Recently lost weight without trying: No Nutrition Risks: No Nutritional Risk Patient : No : No Poor oral hygiene: No service: No Current occupational status: disabled Meds Allergies Allergy/AdvReac Type Severity Reaction Status Date / Time atropine [ATROPINE] Allergy Unknown ANAPHYLAXIS Verified 11/20/20 10:29 droperidol [From INAPSINE] Allergy Unknown SEIZURES Verified 11/20/20 10:29 NSAIDS (Non-Steroidal Allergy Unknown RENAL Verified 11/20/20 10:29 Anti-Inflamma FAILURE [NSAIDS] sumatriptan [From IMITREX] Allergy Unknown SEIZURES Verified 11/20/20 10:29 From COMPAZINE Allergy Unknown SEIZURES Uncoded 12/06/19 16:20 From IMITREX Allergy Unknown SEIZURES Uncoded 12/06/19 16:20 From REGLAN Allergy Unknown SEIZURES Uncoded 12/06/19 16:20 From TORADOL Allergy Unknown SEIZURES Uncoded 12/06/19 16:20 From ULTRAM Allergy Unknown SEIZURES Uncoded 12/06/19 16:20 Active Medications: Current Medications Generic Name Dose Route Start Last Admin Trade Name Freq PRN Reason Stop Dose Admin Acetaminophen 650 mg 12/02/20 19:38 Acetaminophen 325 Mg Tablet PO Q6H PRN Pain (Scale Score 1-3) Celecoxib 200 mg 12/02/20 14:00 12/04/20 08:22 Celecoxib 200 Mg Capsule PO 200 mg BID BRISEYDA Administration Enoxaparin Sodium 40 mg 12/02/20 09:00 12/04/20 08:22 Enoxaparin Sodium 40 Mg/0.4 Ml Syringe SUBCUT 40 mg Q24H BRISEYDA Administration Gabapentin 600 mg 12/02/20 15:00 12/04/20 08:22 Gabapentin 300 Mg Capsule PO 600 mg TID BRISEYDA Administration Hydromorphone HCl 2 mg 12/03/20 22:20 12/04/20 12:47 Hydromorphone Hcl 2 Mg/Ml Vial IVPUSH 2 mg Q2H PRN Administration Pain, Severe (Pain Scale 7-10) Protocol Lactated Ringer's 1,000 mls @ 80 mls/hr 12/02/20 08:00 12/04/20 08:27 Lr IVCONT 80 mls/hr .[id number] BRISEYDA Administration Levetiracetam 750 mg 12/01/20 21:00 12/04/20 12:45 Levetiracetam 500 Mg Tablet PO 750 mg QID BRISEYDA Administration Lorazepam 1 mg 12/01/20 19:39 12/04/20 12:46 Lorazepam 2 Mg/Ml Vial IVPUSH 1 mg Q2H PRN Administration Seizures Melatonin 6 mg 12/01/20 19:41 12/03/20 21:12 Melatonin 3 Mg Tablet PO 6 mg BEDTIME PRN Administration Insomnia Non-Formulary Medication 140 mg 12/01/20 19:45 Erenumab-Aooe SUBCUT Q28D BRISEYDA Omeprazole 20 mg 12/02/20 09:00 12/04/20 08:22 Omeprazole 20 Mg Capsule.Dr PO 20 mg DAILY BRISEYDA Administration Ondansetron HCl 4 mg 12/01/20 19:41 12/02/20 22:29 Ondansetron Hcl 4 Mg/2 Ml Vial IVPUSH 4 mg Q8H PRN Administration Nausea and Vomiting Pharmacy Consult 1 each 12/01/20 12:56 Consult Rx Perform Med Rec MISCELLANE ONCE PRN Consult order Pharmacy Consult 1 each 12/01/20 17:23 Consult Rx Perform Med Rec MISCELLANE ONCE PRN Consult order Phenytoin Sodium 100 mg 12/01/20 21:00 12/04/20 12:45 Phenytoin Sodium Extended 100 Mg Capsule PO 100 mg QID BRISEYDA Administration Promethazine HCl 25 mg 12/01/20 19:38 Promethazine Hcl 25 Mg Tablet PO Q6H PRN nausea/vomiting Ropinirole HCl 1 mg 12/01/20 21:00 12/03/20 21:11 Ropinirole Hcl 1 Mg Tablet PO 1 mg BEDTIME BRISEYDA Administration Senna 17.2 mg 12/01/20 19:41 Sennosides 8.6 Mg Tablet PO BEDTIME PRN Constipation Sodium Chloride 3 ml 12/02/20 00:00 12/04/20 08:22 0.9 % Sodium Chloride Flush 3 Ml Syringe IVFLUSH 3 ml QSHIFT BRISEYDA Administration Home Medications Medication Instructions Recorded Confirmed Last Taken Type acetaminophen 325 mg tablet 650 mg PO Q6H PRN 12/01/20 12/01/20 Unknown History erenumab-aooe 140 mg/mL 140 mg SUBCUT QMONTH 12/01/20 12/01/20 11/01/20 History subcutaneous auto-injector gabapentin 300 mg capsule 1 cap PO BID 12/01/20 12/01/20 11/24/20 History hydromorphone 4 mg tablet 4 mg PO Q6H PRN 12/01/20 12/01/20 Unknown History (Dilaudid) levetiracetam 750 mg tablet 1 tab PO QID 12/01/20 12/01/20 12/01/20 History omeprazole 20 mg capsule,delayed 1 cap PO DAILY 12/01/20 12/01/20 12/01/20 History release ondansetron 8 mg disintegrating 1 tab PO Q8H PRN 12/01/20 12/01/20 Unknown History tablet oxycodone 20 mg tablet 1 tab PO 5XD 12/01/20 12/01/20 12/01/20 History phenytoin sodium extended 100 mg 1 cap PO QID 12/01/20 12/01/20 12/01/20 History capsule promethazine 25 mg tablet 1 tab PO Q6H PRN 12/01/20 12/01/20 11/30/20 History ropinirole 1 mg tablet 1 tab PO BEDTIME 12/01/20 12/01/20 11/30/20 History Exam Exam Date and Time: December 04, 2020 1526 Height,Weight and Vital Signs: Height 5 ft 4 in Weight 54.431 kg Last Vital Signs Temp 97.2 F 12/04/20 15:19 Pulse 72 12/04/20 15:19 Resp 18 12/04/20 15:19 BP 118/77 12/04/20 15:19 Pulse Ox 96 12/04/20 15:19 Pertinent Lab Results Pertinent Lab Results: Laboratory Tests 12/01/20 12/01/20 12/01/20 11:05 11:05 11:05 WBC 2.7 L RBC 3.81 L Hgb 12.9 Hct 37.3 MCV 97.9 MCH 33.9 H MCHC 34.6 RDW 13.5 Plt Count 141 L MPV 11.8 Immature Gran % (Auto) 0.0 Neut % (Auto) 55.3 Lymph % (Auto) 32.5 [place] % (Auto) 8.5 Eos % (Auto) 3.0 Baso % (Auto) 0.7 Lymph # (Auto) 0.9 L [place] # (Auto) 0.2 Eos # (Auto) 0.1 Baso # (Auto) 0.0 Abs Immat Gran (auto) 0.00 Absolute Neuts (auto) 1.5 L Absolute Nucleated RBC 0.000 Nucleated RBC % (auto) 0.0 Smear Path Review Sodium 138 Potassium 4.1 Chloride 103 Carbon Dioxide 24 Anion Gap 15 BUN 19 H Creatinine 0.89 Estim Creat Clear Calc 64.2 Estimated GFR > 60 POC Glucose Random Glucose 85 Lactic Acid Lactic Acid Fup @ 2Hr Calcium 9.3 Total Bilirubin 0.2 Direct Bilirubin 0.2 AST 44 H ALT 29 Alkaline Phosphatase 167 H Lactate Dehydrogenase Total Protein 6.7 Albumin 4.1 Lipase 43 Vitamin B12 Folate Urine Color Urine Appearance Urine pH Ur Specific [place] Urine Protein Urine Glucose (UA) Urine Ketones Urine Blood Urine Nitrite Ur Leukocyte Esterase Urine RBC Urine WBC Ur Squamous Epith Cells Urine Bacteria Urine Opiates Screen Urine Fentanyl Screen Ur Barbiturates Screen Phenytoin Ur Phencyclidine Scrn Ur Amphetamines Screen U Benzodiazepines Scrn Urine Cocaine Screen U Marijuana (THC) Screen COVID-19 (DANIEL) COVID-19 Clin Com HIV 1&2 Ab/P24 Ag 4thGn 12/01/20 12/01/20 12/01/20 11:05 11:09 14:04 WBC RBC Hgb Hct MCV MCH MCHC RDW Plt Count MPV Immature Gran % (Auto) Neut % (Auto) Lymph % (Auto) [place] % (Auto) Eos % (Auto) Baso % (Auto) Lymph # (Auto) [place] # (Auto) Eos # (Auto) Baso # (Auto) Abs Immat Gran (auto) Absolute Neuts (auto) Absolute Nucleated RBC Nucleated RBC % (auto) Smear Path Review Sodium Potassium Chloride Carbon Dioxide Anion Gap BUN Creatinine Estim Creat Clear Calc Estimated GFR POC Glucose Random Glucose Lactic Acid 2.1 H* Lactic Acid Fup @ 2Hr 1.3 Calcium Total Bilirubin Direct Bilirubin AST ALT Alkaline Phosphatase Lactate Dehydrogenase Total Protein Albumin Lipase Vitamin B12 Folate Urine Color Urine Appearance Urine pH Ur Specific [place] Urine Protein Urine Glucose (UA) Urine Ketones Urine Blood Urine Nitrite Ur Leukocyte Esterase Urine RBC Urine WBC Ur Squamous Epith Cells Urine Bacteria Urine Opiates Screen Urine Fentanyl Screen Ur Barbiturates Screen Phenytoin Ur Phencyclidine Scrn Ur Amphetamines Screen U Benzodiazepines Scrn Urine Cocaine Screen U Marijuana (THC) Screen COVID-19 (DANIEL) Negative COVID-19 Clin Com See Note HIV 1&2 Ab/P24 Ag 4thGn 12/01/20 12/01/20 12/02/20 16:09 16:09 07:34 WBC 2.7 L RBC 3.84 L Hgb 12.7 Hct 38.2 MCV 99.5 H MCH 33.1 H MCHC 33.2 RDW 13.3 Plt Count 125 L MPV 12.3 Immature Gran % (Auto) 0.4 Neut % (Auto) 46.2 Lymph % (Auto) 40.1 H [place] % (Auto) 7.4 Eos % (Auto) 5.5 H Baso % (Auto) 0.4 Lymph # (Auto) 1.1 L [place] # (Auto) 0.2 Eos # (Auto) 0.2 Baso # (Auto) 0.0 Abs Immat Gran (auto) 0.01 Absolute Neuts (auto) 1.3 L Absolute Nucleated RBC 0.000 Nucleated RBC % (auto) 0.0 Smear Path Review Sodium Potassium Chloride Carbon Dioxide Anion Gap BUN Creatinine Estim Creat Clear Calc Estimated GFR POC Glucose Random Glucose Lactic Acid Lactic Acid Fup @ 2Hr Calcium Total Bilirubin Direct Bilirubin AST ALT Alkaline Phosphatase Lactate Dehydrogenase Total Protein Albumin Lipase Vitamin B12 Folate Urine Color YELLOW Urine Appearance CLEAR Urine pH 6.5 Ur Specific [place] 1.015 Urine Protein NEG Urine Glucose (UA) NEG Urine Ketones NEG Urine Blood 3+ H Urine Nitrite NEG Ur Leukocyte Esterase NEG Urine RBC 15-29 H Urine WBC 0 Ur Squamous Epith Cells 1+ Urine Bacteria NONE Urine Opiates Screen Not Detected Urine Fentanyl Screen POSITIVE H Ur Barbiturates Screen Not Detected Phenytoin Ur Phencyclidine Scrn Not Detected Ur Amphetamines Screen Not Detected U Benzodiazepines Scrn Not Detected Urine Cocaine Screen Not Detected U Marijuana (THC) Screen POSITIVE H COVID-19 (DANIEL) COVID-19 Clin Com HIV 1&2 Ab/P24 Ag 4thGn 12/02/20 12/03/20 12/03/20 07:34 06:36 06:36 WBC 2.4 L RBC 3.77 L Hgb 12.6 Hct 37.3 MCV 98.9 H MCH 33.4 H MCHC 33.8 RDW 12.8 Plt Count 92 L D MPV 12.8 H Immature Gran % (Auto) Neut % (Auto) Lymph % (Auto) [place] % (Auto) Eos % (Auto) Baso % (Auto) Lymph # (Auto) [place] # (Auto) Eos # (Auto) Baso # (Auto) Abs Immat Gran (auto) Absolute Neuts (auto) Absolute Nucleated RBC 0.000 Nucleated RBC % (auto) 0.0 Smear Path Review SEE NOTE Sodium 135 138 Potassium 3.8 4.1 Chloride 106 106 Carbon Dioxide 21 L 26 Anion Gap 12 10 L BUN 10 9 Creatinine 0.76 0.74 Estim Creat Clear Calc 75.2 77.3 Estimated GFR > 60 > 60 POC Glucose Random Glucose 92 86 Lactic Acid Lactic Acid Fup @ 2Hr Calcium 8.3 L D 9.0 D Total Bilirubin Direct Bilirubin AST ALT Alkaline Phosphatase Lactate Dehydrogenase 190 Total Protein Albumin Lipase Vitamin B12 Folate Urine Color Urine Appearance Urine pH Ur Specific [place] Urine Protein Urine Glucose (UA) Urine Ketones Urine Blood Urine Nitrite Ur Leukocyte Esterase Urine RBC Urine WBC Ur Squamous Epith Cells Urine Bacteria Urine Opiates Screen Urine Fentanyl Screen Ur Barbiturates Screen Phenytoin Ur Phencyclidine Scrn Ur Amphetamines Screen U Benzodiazepines Scrn Urine Cocaine Screen U Marijuana (THC) Screen COVID-19 (DANIEL) COVID-19 Clin Com HIV 1&2 Ab/P24 Ag 4thGn 12/03/20 12/03/20 12/03/20 06:36 06:36 09:35 WBC RBC Hgb Hct MCV MCH MCHC RDW Plt Count MPV Immature Gran % (Auto) Neut % (Auto) Lymph % (Auto) [place] % (Auto) Eos % (Auto) Baso % (Auto) Lymph # (Auto) [place] # (Auto) Eos # (Auto) Baso # (Auto) Abs Immat Gran (auto) Absolute Neuts (auto) Absolute Nucleated RBC Nucleated RBC % (auto) Smear Path Review Sodium Potassium Chloride Carbon Dioxide Anion Gap BUN Creatinine Estim Creat Clear Calc Estimated GFR POC Glucose Random Glucose Lactic Acid Lactic Acid Fup @ 2Hr Calcium Total Bilirubin Direct Bilirubin AST ALT Alkaline Phosphatase Lactate Dehydrogenase Total Protein Albumin Lipase Vitamin B12 356 Folate 5.8 Urine Color Urine Appearance Urine pH Ur Specific [place] Urine Protein Urine Glucose (UA) Urine Ketones Urine Blood Urine Nitrite Ur Leukocyte Esterase Urine RBC Urine WBC Ur Squamous Epith Cells Urine Bacteria Urine Opiates Screen Urine Fentanyl Screen Ur Barbiturates Screen Phenytoin 22.9 H Ur Phencyclidine Scrn Ur Amphetamines Screen U Benzodiazepines Scrn Urine Cocaine Screen U Marijuana (THC) Screen COVID-19 (DANIEL) COVID-19 Clin Com HIV 1&2 Ab/P24 Ag 4thGn Nonreactive 12/04/20 12/04/20 06:17 08:04 WBC 2.8 L RBC 3.70 L Hgb 12.2 Hct 37.0 MCV 100.0 H MCH 33.0 MCHC 33.0 RDW 12.7 Plt Count 116 L D MPV 12.7 H Immature Gran % (Auto) 0.0 Neut % (Auto) 45.0 Lymph % (Auto) 41.4 H [place] % (Auto) 7.1 Eos % (Auto) 6.1 H Baso % (Auto) 0.4 Lymph # (Auto) 1.2 [place] # (Auto) 0.2 Eos # (Auto) 0.2 Baso # (Auto) 0.0 Abs Immat Gran (auto) 0.00 Absolute Neuts (auto) 1.3 L Absolute Nucleated RBC 0.000 Nucleated RBC % (auto) 0.0 Smear Path Review Sodium Potassium Chloride Carbon Dioxide Anion Gap BUN Creatinine Estim Creat Clear Calc Estimated GFR POC Glucose 84 Random Glucose Lactic Acid Lactic Acid Fup @ 2Hr Calcium Total Bilirubin Direct Bilirubin AST ALT Alkaline Phosphatase Lactate Dehydrogenase Total Protein Albumin Lipase Vitamin B12 Folate Urine Color Urine Appearance Urine pH Ur Specific [place] Urine Protein Urine Glucose (UA) Urine Ketones Urine Blood Urine Nitrite Ur Leukocyte Esterase Urine RBC Urine WBC Ur Squamous Epith Cells Urine Bacteria Urine Opiates Screen Urine Fentanyl Screen Ur Barbiturates Screen Phenytoin Ur Phencyclidine Scrn Ur Amphetamines Screen U Benzodiazepines Scrn Urine Cocaine Screen U Marijuana (THC) Screen COVID-19 (DANIEL) COVID-19 Clin Com HIV 1&2 Ab/P24 Ag 4thGn Airway Mallampati Class: II TM Dist: >3cm Neck ROM: Full Heart: RRR Lungs: CTA Assessment and Plan Final Anesthetic Review History of Problems with Anesthesia: No
[2020-12-04] MEDS: levoFLOXacin 500 MG TABLET PO (16:40)
--- NOTE | 2020-12-04 17:00 | MHC.SHP ---
Pre-Procedural Eval Section A Date of Service: 12/04/20 Section B Chief Complaint: Seizure Details of Present Illness: right flank pain Relevant Family History (Specify if Yes): No Relevant Social History: None Present Medications: see Short Stay Collaborative assessment Medical History: Significant History History of Previous Operations: Relevant previous surgery/procedure and date(s) Allergies: Allergies Allergy/AdvReac Type Severity Reaction Status Date / Time atropine [ATROPINE] Allergy Unknown ANAPHYLAXIS Verified 11/20/20 10:29 droperidol [From INAPSINE] Allergy Unknown SEIZURES Verified 11/20/20 10:29 NSAIDS (Non-Steroidal Allergy Unknown RENAL Verified 11/20/20 10:29 Anti-Inflamma FAILURE [NSAIDS] sumatriptan [From IMITREX] Allergy Unknown SEIZURES Verified 11/20/20 10:29 From COMPAZINE Allergy Unknown SEIZURES Uncoded 12/06/19 16:20 From IMITREX Allergy Unknown SEIZURES Uncoded 12/06/19 16:20 From REGLAN Allergy Unknown SEIZURES Uncoded 12/06/19 16:20 From TORADOL Allergy Unknown SEIZURES Uncoded 12/06/19 16:20 From ULTRAM Allergy Unknown SEIZURES Uncoded 12/06/19 16:20 Review of Systems Sugical H&P ROS: Negative: Constitution, Cardiovascular, Respiratory, Neurological, Psychiatric, Hem-Onc, Allergic/Immunologic, Gastrointestinal, Genitourinary, Musculoskeletal, Integumentary, Endocrine and Eyes/Ears/Nose/Throat Exam Surgical H&P Exam: Normal: HEENT, Normal: Heart, Normal: Lungs, Normal: Extremities, Normal: Abdomen, Normal: Skin and Normal: Neurological Plan Diagnosis/Plan: Unchanged (right retrograde, ureteroscopy, stent) I have reviewed the history and physical and performed a pertinent physical examination on my patient. No changes have occurred unless specified.
--- NOTE | 2020-12-04 18:00 | P.OP_ITS ---
Operative Note Operative Note Date of Service: 12/04/20 Narrative: PreOperative Diagnosis: Right ureteric stone Post Operative Diagnosis: No stone Procedure: - right cystoscopy, retrograde - dilatation of ureteric orifice under fluoroscopy - right ureteroscopy - right stent placement Surgeon: Dr Bennett Stanton Anesthesia: General Indications for procedure: Persistent right flank pain. Known Medullary sponge kidney. Persistent pain in hospital non responsive to oral medications. Procedure: After informed consent was verified patient was brought to the operating placed in supine position. Anesthesia was administered per protocol. Patient was placed in modified dorsal lithotomy position and prepped and draped in a sterile fashion. Safety pause time-out and side of surgery confirmed. Antibiotics confirmed. Twenty-two Dutch cystoscope per urethra. No abnormality detected. Right retrograde performed. No filling defects seen. Sensor guidewire placed Ureteric orifice dilated with Amando dilator Rigid ureteroscopy performed up to the level renal pelvis. No stone seen. No obstruction. Due to issues with persistent question of obstruction a 6 Dutch by 24 cm stent was left. A stent passed without difficulty. She tolerated procedure well was extubated in operating room transferred in sta ble condition to the recovery area. Pathology: None Drains: 6 Dutch by 24 cm stent
[2020-12-04] MEDS: rOPINIRole HCL 1 MG TABLET PO (20:13)
--- NOTE | 2020-12-04 22:59 | P.EN_ITS ---
Event Note Date of Service: 12/04/20 Event Note: Urinary retention: pt s/p cystoscopy; pt also on opiates. booth C atheter placed. A.m. team to follow-up with urology
--- NOTE | 2020-12-04 22:59 | PM.EVENT ---
Event Note Date of Service: 12/04/20 Event Note: Urinary retention: pt s/p cystoscopy; pt also on opiates. booth Catheter placed. A.m. team to follow-up with urology
[2020-12-05] MEDS: Phenytoin Sodium Extended 100 MG CAPSULE PO ×3 (00:58→13:29)
[2020-12-05] MEDS: levETIRAcetam 500 MG TABLET 750 MG PO ×3 (00:59→13:28)
[2020-12-05] MEDS: Lactated Ringers 1,000 ML 80 ML IVCONT (02:28)
[2020-12-05] MEDS: HYDROmorphone HCl 2 MG/ML VIAL IVPUSH ×4 (02:32→09:33)
[2020-12-05 03:44] VITALS: BP 132/77; PULSE 83; RESP 20; TEMP 36.7; O2SAT 96
[2020-12-05] MEDS: LORazepam 2 MG/ML VIAL 1 MG IVPUSH ×2 (06:03→11:12)
--- NOTE | 2020-12-05 06:48 | HO.POSTANES ---
Post Anesthesia Evaluation Post Anesthesia Evaluation Vital Signs: Vital Signs Temp Pulse Resp BP Pulse Ox 12/05/20 03:44 98.1 F 83 20 132/77 96 12/04/20 23:10 98.9 F 104 H 18 134/86 97 12/04/20 19:00 97.6 F 73 18 140/81 H 96 Anesthesia: General Mental Status: Awake Pain Control: Satisfactory Nausea/Vomiting: None Hydration: Adequate Anesthesia-Related Issues: No Anes. Related Issues
[2020-12-05 08:00] VITALS: BP 133/80; PULSE 77; RESP 18; TEMP 36.7; O2SAT 97
[2020-12-05 09:33] VITALS: RESP 18
[2020-12-05] MEDS: Gabapentin 300 MG CAPSULE 600 MG PO ×2 (09:34→14:53)
[2020-12-05] MEDS: 0.9 % Sodium Chloride Flush 3 ML SYRINGE IVFLUSH (09:34)
[2020-12-05] MEDS: Enoxaparin Sodium 40 MG/0.4 ML SYRINGE SUBCUT (09:35)
[2020-12-05] MEDS: Omeprazole 20 MG CAPSULE.DR PO (09:35)
[2020-12-05] MEDS: Celecoxib 200 MG CAPSULE PO (09:35)
--- NOTE | 2020-12-05 09:44 | HO.PM.IMPN ---
Subjective Subjective Date of Service: 12/05/20 Interval History: Cystoscopy and stent placement yesterday. Degroot placed overnight for retention. Still c/o severe R flank pain. Review of Systems Review of Systems: Yes all other systems are reviewed and are negative Physical Exam Vital Signs: Vital Signs: Last Vital Signs Temp 98.0 F 12/05/20 08:00 Pulse 77 12/05/20 08:00 Resp 18 12/05/20 09:33 BP 133/80 12/05/20 08:00 Pulse Ox 97 12/05/20 08:00 Body Mass Index 20.5 Gen: nontoxic HEENT: sclera anicteric, moist mucus membranes Neck: supple Lungs: clear to auscultation bilaterally Heart: regular rate and rhythm, no murmurs Abd: soft, epigastric tenderness, non-distended : R CVA tenderness, Degroot with pink urine Ext: no edema Skin: warm/well-perfused Neuro: alert and oriented x3, no focal findings Psych: anxious Objective Data Active Medications Acetaminophen (Acetaminophen 325 Mg Tablet) 650 mg PO Q6H PRN PRN Reason: Pain (Scale Score 1-3) Celecoxib (Celecoxib 200 Mg Capsule) 200 mg PO BID [facility] Last Admin: 12/05/20 09:35 Dose: 200 mg Documented by: LISBETH Enoxaparin Sodium (Enoxaparin Sodium 40 Mg/0.4 Ml Syringe) 40 mg SUBCUT Q24H [facility] Last Admin: 12/05/20 09:35 Dose: 40 mg Documented by: LISBETH Fentanyl (Fentanyl Citrate/Pf 100 Mcg/2 Ml Vial) 50 mcg IVPUSH Q5M PRN; Protocol PRN Reason: Pain, Severe (Pain Scale 7-10) Gabapentin (Gabapentin 300 Mg Capsule) 600 mg PO TID [facility] Last Admin: 12/05/20 09:34 Dose: 600 mg Documented by: LISBETH Hydromorphone HCl (Hydromorphone Hcl 2 Mg/Ml Vial) 2 mg IVPUSH Q2H PRN; Protocol PRN Reason: Pain, Severe (Pain Scale 7-10) Last Admin: 12/05/20 09:33 Dose: 2 mg Documented by: LISBETH Lactated Ringer's (Lr) 1,000 mls @ 80 mls/hr IVCONT .[id number] [facility] Last Admin: 12/05/20 02:28 Dose: 80 mls/hr Documented by: MORRO Lactated Ringer's (Lr) 500 mls @ 20 mls/hr IVCONT .Q24H [facility] Last Admin: 12/05/20 00:19 Dose: Not Given Documented by: MORRO Non-Admin Reason: Duplicate Order Levetiracetam (Levetiracetam 500 Mg Tablet) 750 mg PO QID [facility] Last Admin: 12/05/20 09:34 Dose: 750 mg Documented by: LISBETH Lorazepam (Lorazepam 2 Mg/Ml Vial) 1 mg IVPUSH Q2H PRN PRN Reason: Seizures Last Admin: 12/05/20 06:03 Dose: 1 mg Documented by: MORRO Melatonin (Melatonin 3 Mg Tablet) 6 mg PO BEDTIME PRN PRN Reason: Insomnia Last Admin: 12/03/20 21:12 Dose: 6 mg Documented by: TUMASY Non-Formulary Medication (Erenumab-Aooe) 140 mg SUBCUT Q28D [facility] Omeprazole (Omeprazole 20 Mg Capsule.Dr) 20 mg PO DAILY [facility] Last Admin: 12/05/20 09:35 Dose: 20 mg Documented by: LISBETH Ondansetron HCl (Ondansetron Hcl 4 Mg/2 Ml Vial) 4 mg IVPUSH Q8H PRN PRN Reason: Nausea and Vomiting Last Admin: 12/02/20 22:29 Dose: 4 mg Documented by: NATALYA Ondansetron HCl (Ondansetron Hcl 4 Mg/2 Ml Vial) 4 mg IVPUSH ONCE PRN PRN Reason: Nausea and Vomiting Pharmacy Consult (Consult Rx Perform Med Rec) 1 each MISCELLANE ONCE PRN PRN Reason: Consult order Pharmacy Consult (Consult Rx Perform Med Rec) 1 each MISCELLANE ONCE PRN PRN Reason: Consult order Phenytoin Sodium (Phenytoin Sodium Extended 100 Mg Capsule) 100 mg PO QID [facility] Last Admin: 12/05/20 09:35 Dose: 100 mg Documented by: LISBETH Promethazine HCl (Promethazine Hcl 25 Mg Tablet) 25 mg PO Q6H PRN PRN Reason: nausea/vomiting Ropinirole HCl (Ropinirole Hcl 1 Mg Tablet) 1 mg PO BEDTIME [facility] Last Admin: 12/04/20 20:13 Dose: 1 mg Documented by: LABELLN Senna (Sennosides 8.6 Mg Tablet) 17.2 mg PO BEDTIME PRN PRN Reason: Constipation Sodium Chloride (0.9 % Sodium Chloride Flush 3 Ml Syringe) 3 ml IVFLUSH QSHIFT [facility] Last Admin: 12/05/20 09:34 Dose: 3 ml Documented by: COLLIAL Labs CBC & Chem 7: 12/04/20 06:17 12/03/20 06:36 Assessment and Plan (1) Acute flank pain: Status: Acute Assessment and Plan: hospital d#5 50-year-old female with a history of seizure disorder, nephrolithiasis, loin pain hematuria syndrome, medullary sponge kidney, lupus (although pt states this was ultimately ruled out), IgA nephropathy, presneted with R flank pain, possible seizures in ED though thought by ED staff to be non-epileptic # R flank pain # loin pain hematuria syndrome # medullary sponge kidney - POD #1 cystoscopy/ureteral stent placement, Urology following, continue IV fluids + IV hydromorphone [on PO 4 mg q6h prn as outpt] # seizure disorder - [place] [facility] [place] Vel[place], [place]: Reported sezirue disorder with hx 1 d vEEG 02/18/11 that was normal despite 2 typical spells and a 2 d study 06/14/16 ?that was also normal (but no spells) admitted after incresed number of seiures in setting of difficulty tolerating po meds due to Gi illness. If genuine, may be due to poor po intake of medications. ?However, it is not even clear as to whether the pt has a true epileptic disorder. ?Suspect not given 3 days of negative EEG recordings and 2 spells that were captured with no electrographic changes. Suspect nonepileptic spells - However, pt states she saw outpt neurologist 2 months ago and is thought to have epileptic seizures. continue Keppra + phenytoin, will try to obtain records, Neurology consulted, EEG normal, phenytoin therapeutic, Keppra level pending. Yesterday's event was not clinically consistent with an epileptic seizure. # leukopenia, thrombocyotpenia - COVID-19 negative, HIV negative. related to SLE? Heme consulted; outpt f/u; ?association with [facility]? # fentanyl positive on Utox - pt denies using heroin, fentanyl, or any other drug other than cannabis. GC/MS pending. pt is on hydromorphone as outpt as above # VTE ppx - LMWH ? Quality Stroke Does the patient have a stroke diagnosis?: No VTE Prior VTE?: No VTE Risk Level:: Medical - moderate - high VTE Device Contraindication: N/A - Device Ordered VTE Drug Contraindication: Treatment Not Indicated
[2020-12-05 12:00] VITALS: BP 119/68; PULSE 77; RESP 20; TEMP 36.9; O2SAT 98
--- NOTE | 2020-12-05 13:06 | PM.UROPN ---
Subjective Subjective Date of Service: 12/05/20 Interval history: Some degree of relief with stent placement Still with flaring of Medullary sponge inflammation She would like to go home of possible Will DC Degroot catheter Switch to oral medications Can be seen in a week for stent removal Physical Exam Vital Signs: Vital Signs: Last Vital Signs Temp 98.5 F 12/05/20 12:00 Pulse 77 12/05/20 12:00 Resp 20 12/05/20 12:00 BP 119/68 12/05/20 12:00 Pulse Ox 98 12/05/20 12:00 Body Mass Index 20.5 Const: General: cooperative, healthy appearing, comfortable and no acute distress Orientation/consciousness: patient oriented x3 HENMT: Face and sinus: Yes normal facial exam Mouth: moist mucous membranes Neck: Neck: Yes normal visual inspection, Yes full ROM and Yes trachea midline Chest: Chest palpation & inspection: normal inspection of the chest Resp: Effort & Inspection: normal respiratory effort, able to speak in complete sentences and no respiratory distress GI: Inspection: Yes normal to inspection Back/Spine/Pelvis: Cervical Spine: normal cervical lordosis Thoracic/Lumbar Spine: thoracic and lumbar spine normal to inspection Skin: General skin exam: no rashes or lesions noted Neuro: General: patient oriented x3, gait normal, tone normal and moves all extremities Extrem: General: Yes normal to inspection and Yes capillary refill normal Urology Results Labs CBC & Chem 7: 12/04/20 06:17 12/03/20 06:36 Progress Note: A&P Assessment and plan (1) Acute flank pain: Status: Acute (2) Medullary sponge kidney: Status: Acute Assessment and Plan: Switch to oral medications DC Degroot catheter Fall Risk Details Current Medications: Current Medications Acetaminophen (Acetaminophen 325 Mg Tablet) 650 mg PO Q6H PRN PRN Reason: Pain (Scale Score 1-3) Celecoxib (Celecoxib 200 Mg Capsule) 200 mg PO BID [facility] Last Admin: 12/05/20 09:35 Dose: 200 mg Documented by: Enoxaparin Sodium (Enoxaparin Sodium 40 Mg/0.4 Ml Syringe) 40 mg SUBCUT Q24H [facility] Last Admin: 12/05/20 09:35 Dose: 40 mg Documented by: Fentanyl (Fentanyl Citrate/Pf 100 Mcg/2 Ml Vial) 50 mcg IVPUSH Q5M PRN; Protocol PRN Reason: Pain, Severe (Pain Scale 7-10) Gabapentin (Gabapentin 300 Mg Capsule) 600 mg PO TID [facility] Last Admin: 12/05/20 09:34 Dose: 600 mg Documented by: Hydromorphone HCl (Hydromorphone Hcl 2 Mg/Ml Vial) 2 mg IVPUSH Q2H PRN; Protocol PRN Reason: Pain, Severe (Pain Scale 7-10) Last Admin: 12/05/20 09:33 Dose: 2 mg Documented by: Lactated Ringer's (Lr) 1,000 mls @ 80 mls/hr IVCONT .[id number] [facility] Last Admin: 12/05/20 12:16 Dose: Not Given Documented by: Lactated Ringer's (Lr) 500 mls @ 20 mls/hr IVCONT .Q24H [facility] Last Admin: 12/05/20 00:19 Dose: Not Given Documented by: Levetiracetam (Levetiracetam 500 Mg Tablet) 750 mg PO QID [facility] Last Admin: 12/05/20 09:34 Dose: 750 mg Documented by: Lorazepam (Lorazepam 2 Mg/Ml Vial) 1 mg IVPUSH Q2H PRN PRN Reason: Seizures Last Admin: 12/05/20 11:12 Dose: 1 mg Documented by: Melatonin (Melatonin 3 Mg Tablet) 6 mg PO BEDTIME PRN PRN Reason: Insomnia Last Admin: 12/03/20 21:12 Dose: 6 mg Documented by: Non-Formulary Medication (Erenumab-Aooe) 140 mg SUBCUT Q28D [facility] Omeprazole (Omeprazole 20 Mg Capsule.Dr) 20 mg PO DAILY [facility] Last Admin: 12/05/20 09:35 Dose: 20 mg Documented by: Ondansetron HCl (Ondansetron Hcl 4 Mg/2 Ml Vial) 4 mg IVPUSH Q8H PRN PRN Reason: Nausea and Vomiting Last Admin: 12/02/20 22:29 Dose: 4 mg Documented by: Ondansetron HCl (Ondansetron Hcl 4 Mg/2 Ml Vial) 4 mg IVPUSH ONCE PRN PRN Reason: Nausea and Vomiting Pharmacy Consult (Consult Rx Perform Med Rec) 1 each MISCELLANE ONCE PRN PRN Reason: Consult order Pharmacy Consult (Consult Rx Perform Med Rec) 1 each MISCELLANE ONCE PRN PRN Reason: Consult order Phenytoin Sodium (Phenytoin Sodium Extended 100 Mg Capsule) 100 mg PO QID [facility] Last Admin: 12/05/20 09:35 Dose: 100 mg Documented by: Promethazine HCl (Promethazine Hcl 25 Mg Tablet) 25 mg PO Q6H PRN PRN Reason: nausea/vomiting Ropinirole HCl (Ropinirole Hcl 1 Mg Tablet) 1 mg PO BEDTIME [facility] Last Admin: 12/04/20 20:13 Dose: 1 mg Documented by: Senna (Sennosides 8.6 Mg Tablet) 17.2 mg PO BEDTIME PRN PRN Reason: Constipation Sodium Chloride (0.9 % Sodium Chloride Flush 3 Ml Syringe) 3 ml IVFLUSH QSHIFT [facility] Last Admin: 12/05/20 09:34 Dose: 3 ml Documented by: Time Spent With Patient Time: Total time spent is greater than 50% in coordination of care (as documented) at patient's floor/unit and/or counseling patient: Time with patient: less than 15 minutes Progress Note: Quality Stroke Does the patient have a stroke diagnosis?: No
[2020-12-05] MEDS: HYDROmorphone HCl 2 MG TABLET PO (13:29)
--- NOTE | 2020-12-05 13:34 | PC.NURSE ---
Degroot Catheter removed at [address] Stanton order
--- NOTE | 2020-12-05 13:55 | PC.NURSE ---
Pt spontaneously voided 100mL. Bladder scanned following void with result of 43mL. Dr. Stanton made aware
--- NOTE | 2020-12-05 14:33 | P.DS_ITS ---
DS: Providers Provider Date of Service: 12/05/20 Date of admission: 12/01/20 19:41 Primary care physician: FABIAN HOBBS MD Consults: 12/01/20 19:39 Consult to Neurology Routine Consulting Provider: [facility] Reason for consultation: seizure Consult to Urology Routine Consulting Provider: Bennett Stanton Reason for consultation: Medullary nephrocalcinosis; right flank pain 12/03/20 08:25 Consult to Hematology / Oncology Routine Consulting Provider: [facility] [place] Reason for consultation: cytopenias - ? DS: Diagnosis Discharge Diagnosis (1) Acute flank pain: Status: Acute (2) Medullary sponge kidney: Status: Acute (3) Bicytopenia: Status: Acute (4) Psychogenic nonepileptic seizure: Status: Acute (5) Loin pain hematuria syndrome: Status: Acute DS: Summary Hospital Course Hospital Course: from admission history and physical by hospitalist Iker Kunz, 12/01/20: 50-year-old female with a past medical history of epilepsy, medical response kidney, microscopic hematuria, nephropathy, SLE, history of recurrent UTI presented to the hospital with a chief complaint of flank pain on the right side; Patient reports that he has been having right flank pain for the past 1 day; associated nausea; denies any gross blood in the urine.? Denies any burning frequency or urgency. Denies any chest pain or palpitations. Reports she has a history of medullary sponge kidney and history of kidney stones; Also mentions that she has a history of epilepsy and now she is in severe pain she gets of breakthrough seizures; is on Keppra and Dilantin at home and reports he has been compliant. Denies any fall or trauma. Denies any chest pain palpitations lightheadedness or dizziness. Denies any numbness tingling or focal weakness. Patient is alert and awake at the time of my interview. ER course: Per ER team patient reportedly had 1 seizure at home for 1 in the EMS, 1 in the waiting area in the ER; and followed by she had 2 seizures in the ER.? Patient was given Ativan, Keppra, Dilantin in the ER.? Patient was asking for IV pain medications and was given IV morphine, IV Dilaudid, IV Ativan. ER team mentioned that day discussed with the Urology who recommended admission to the medicine service. This 50-year-old female with a history of seizure disorder, nephrolithiasis, loin pain hematuria syndrome, medullary sponge kidney, lupus (although pt states this was ultimately ruled out), and IgA nephropathy presented with acute worsening of her chronic right flank pain and possible seizures in in the ED, though these are thought by the ED staff to be non-epileptic. She was admitted to the medicine service and received IV fluids and IV hydromorphone. She underwent cystoscopy with placement of a ureteral stent by Dr Stanton on 12/04/20. She should follow up with him in 1-2 weeks. She had a seizure-like episode involving generalized shaking on 12/03/20 that was not clinically consistent with an epileptic seizure. A waking EEG on 12/03/20 was normal. Per prior Neurology consult at [facility] [place] by Dr Christiano Velasquez, 04/25/19: Reported sezirue disorder with hx 1 d vEEG 02/18/11 that was normal despite 2 typical spells and a 2 d study 06/14/16 ?that was also normal (but no spells) admitted after incresed number of seiures in setting of difficulty tolerating po meds due to Gi illness. If genuine, may be due to poor po intake of medications. ?However, it is not even clear as to whether the pt has a true epileptic disorder. ?Suspect not given 3 days of negative EEG recordings and 2 spells that were captured with no electrographic changes. Suspect nonepileptic spells A Keppra level was drawn and is pending at the time of discharge. She should follow up with her neurologist Dr Jones in 2 weeks. She was noted to have mild leukopenia and thrombocytopenia. HIV serology was negative. A repeat CBCd in 1 month was ordered and she should be referred to Hematology. Cytopenias may be associated with Keppra; given that these were mild, her Keppra will be continued for now and medication changes will be deferred to her regular neurologist. She was noted to have a positive urine toxicology test for fentanyl. She denied using heroin, fentanyl, or any other drug other than cannabis and her prescribed hydromorphone. GC/MS opioid screen is pending at the time of discharge. Time Spent with Patient Time attestation: Total time spent providing and/or coordinating discharge services: Discharge coordination time: Greater than 30 minutes Quality: Stroke Does the patient have a stroke diagnosis?: No Physical Exam Vital Signs: Vital Signs: Last Vital Signs Temp 98.5 F 12/05/20 12:00 Pulse 77 12/05/20 12:00 Resp 20 12/05/20 12:00 BP 119/68 12/05/20 12:00 Pulse Ox 98 12/05/20 12:00 Body Mass Index 20.5 Gen: nontoxic HEENT: sclera anicteric, moist mucus membranes Neck: supple Lungs: clear to auscultation bilaterally Heart: regular rate and rhythm, no murmurs Abd: soft, epigastric tenderness, non-distended : R CVA tenderness, Degroot with pink urine Ext: no edema Skin: warm/well-perfused Neuro: alert and oriented x3, no focal findings Psych: anxious DS: Data Data Completed and Pending Completed studies during hospitalization [Text1]: Laboratory Results WBC 2.8 X10*3/uL (4.8-10.8) L 12/04/20 06:17 RBC 3.70 X10*6/uL (4.20-5.50) L 12/04/20 06:17 Hgb 12.2 g/dl (12.0-16.0) 12/04/20 06:17 Hct 37.0 % (37-47) 12/04/20 06:17 MCV 100.0 fL (80-98) H 12/04/20 06:17 MCH 33.0 pg (27.0-33.0) 12/04/20 06:17 MCHC 33.0 g/dl (31.0-35.0) 12/04/20 06:17 RDW 12.7 % (11.0-16.0) 12/04/20 06:17 Plt Count 116 X10*3/uL (160-400) L D 12/04/20 06:17 MPV 12.7 fL (9.4-12.3) H 12/04/20 06:17 Immature Gran % (Auto) 0.0 % (0.0-0.4) 12/04/20 06:17 Neut % (Auto) 45.0 % (45-73) 12/04/20 06:17 Lymph % (Auto) 41.4 % (20-40) H 12/04/20 06:17 [place] % (Auto) 7.1 % (2-11) 12/04/20 06:17 Eos % (Auto) 6.1 % (0-4) H 12/04/20 06:17 Baso % (Auto) 0.4 % (0-2) 12/04/20 06:17 Lymph # (Auto) 1.2 X10*3/uL (1.2-4.9) 12/04/20 06:17 [place] # (Auto) 0.2 X10*3/uL (0.1-1.2) 12/04/20 06:17 Eos # (Auto) 0.2 X10*3/uL (0.0-0.4) 12/04/20 06:17 Baso # (Auto) 0.0 X10*3/uL (0.0-0.2) 12/04/20 06:17 Abs Immat Gran (auto) 0.00 X10*3/uL (0.00-0.03) 12/04/20 06:17 Absolute Neuts (auto) 1.3 X10*3/uL (2.0-8.3) L 12/04/20 06:17 Absolute Nucleated RBC 0.000 X10*3/uL (0.0-0.012) 12/04/20 06:17 Nucleated RBC % (auto) 0.0 /100WBC (0.0-0.2) 12/04/20 06:17 Smear Path Review SEE NOTE 12/03/20 06:36 Sodium 138 mmol/L (135-145) 12/03/20 06:36 Potassium 4.1 mmol/L (3.3-5.1) 12/03/20 06:36 Chloride 106 mmol/L (96-108) 12/03/20 06:36 Carbon Dioxide 26 mmol/L (22-29) 12/03/20 06:36 Anion Gap 10 (12-20) L 12/03/20 06:36 BUN 9 mg/dL (9-16) 12/03/20 06:36 Creatinine 0.74 mg/dL (0.5-1.4) 12/03/20 06:36 Estim Creat Clear Calc 77.3 12/03/20 06:36 Estimated GFR > 60 12/03/20 06:36 POC Glucose 84 mg/dL (60-115) 12/04/20 08:04 Random Glucose 86 mg/dL (60-115) 12/03/20 06:36 Lactic Acid 2.1 mmol/L (0.5-2.0) H* 12/01/20 11:05 Lactic Acid Fup @ 2Hr 1.3 mmol/L (0.5-2.0) 12/01/20 14:04 Calcium 9.0 mg/dL (8.4-10.2) D 12/03/20 06:36 Total Bilirubin 0.2 mg/dL (0.0-1.0) 12/01/20 11:05 Direct Bilirubin 0.2 mg/dL (0.0-0.5) 12/01/20 11:05 AST 44 U/L (5-31) H 12/01/20 11:05 ALT 29 U/L (0-31) 12/01/20 11:05 Alkaline Phosphatase 167 U/L (39-117) H 12/01/20 11:05 Lactate Dehydrogenase 190 U/L (122-220) 12/03/20 06:36 Total Protein 6.7 g/dL (6.5-8.0) 12/01/20 11:05 Albumin 4.1 g/dL (3.5-5.0) 12/01/20 11:05 Lipase 43 U/L (8-78) 12/01/20 11:05 Vitamin B12 356 pg/mL (200-900) 12/03/20 06:36 Folate 5.8 ng/mL (> or = 4.0) 12/03/20 06:36 Urine Color YELLOW 12/01/20 16:09 Urine Appearance CLEAR 12/01/20 16:09 Urine pH 6.5 (5.0-8.0) 12/01/20 16:09 Ur Specific [place] 1.015 (1.005-1.025) 12/01/20 16:09 Urine Protein NEG MG/DL (NEG-TRACE) 12/01/20 16:09 Urine Glucose (UA) NEG MG/DL (NEG) 12/01/20 16:09 Urine Ketones NEG MG/DL (NEG) 12/01/20 16:09 Urine Blood 3+ (NEG) H 12/01/20 16:09 Urine Nitrite NEG (NEG) 12/01/20 16:09 Ur Leukocyte Esterase NEG (NEG) 12/01/20 16:09 Urine RBC 15-29 /HPF (0) H 12/01/20 16:09 Urine WBC 0 /HPF (0-4) 12/01/20 16:09 Ur Squamous Epith Cells 1+ /LPF 12/01/20 16:09 Urine Bacteria NONE /LPF 12/01/20 16:09 Urine Opiates Screen Not Detected (Not Detect) 12/01/20 16:09 Urine Fentanyl Screen POSITIVE (Not Detect) H 12/01/20 16:09 Ur Barbiturates Screen Not Detected (Not Detect) 12/01/20 16:09 Phenytoin 22.9 ug/mL (10.0-20.0) H 12/03/20 09:35 Ur Phencyclidine Scrn Not Detected (Not Detect) 12/01/20 16:09 Ur Amphetamines Screen Not Detected (Not Detect) 12/01/20 16:09 U Benzodiazepines Scrn Not Detected (Not Detect) 12/01/20 16:09 Urine Cocaine Screen Not Detected (Not Detect) 12/01/20 16:09 U Marijuana (THC) Screen POSITIVE (Not Detect) H 12/01/20 16:09 COVID-19 (DANIEL) Negative (Negative) 12/01/20 11:09 COVID-19 Clin Com See Note 12/01/20 11:09 HIV 1&2 Ab/P24 Ag 4thGn Nonreactive (Nonreactive) 12/03/20 06:36 Impressions Abdomen/Pelvis CT 12/01/20 10:49 IMPRESSION: Right medullary nephrocalcinosis. No obstructing right renal or ureteral stone seen. Guidance Fluoroscopy 12/04/20 16:24 IMPRESSION: Fluoroscopy and spot films provided during right internally dwelling ureteral stent placement. Discharge Plan Discharge Anticipated Discharge Date/Time: 12/05/20 14:27 Patient Disposition: Home, Self-Care Discharge Diagnosis: flank pain seizure-like activity bicytopenia Referrals: Bennett Stanton MD [Physician] - 1 Week Evelyn Madsen MD [Physician] - 1 Month FABIAN HOBBS [Primary Care Provider] - 1 Week Aakash Jones MD [Physician] - 2 Weeks Discharge Medications: New nicotine (polacrilex) 2 mg gum 2 mg buccal Q1H Qty: 120 RF: 0 Continued acetaminophen 325 mg Tablet 650 mg PO Q6H PRN (Reason: Pain (Scale Score 1-3)) RF: 0 hydromorphone [Dilaudid] 4 mg tablet 4 mg PO Q6H PRN (Reason: Pain (Scale Score 7-10)) RF: 0 gabapentin 300 mg capsule 1 cap PO BID RF: 0 levetiracetam 750 mg tablet 1 tab PO QID RF: 0 erenumab-aooe 140 mg/mL Auto-Injector 140 mg SUBCUT QMONTH RF: 0 omeprazole 20 mg capsule,delayed release(DR/EC) 1 cap PO DAILY RF: 0 ropinirole 1 mg tablet 1 tab PO BEDTIME RF: 0 promethazine 25 mg tablet 1 tab PO Q6H PRN (Reason: nausea/vomiting) RF: 0 phenytoin sodium extended 100 mg capsule 1 cap PO QID RF: 0 oxycodone 20 mg tablet 1 tab PO 5XD RF: 0 ondansetron 8 mg tablet,disintegrating 1 tab PO Q8H PRN (Reason: nausea/vomiting) RF: 0 Discharge Orders: Discharge Order (Routine); Ordered 12/05/20 Ordered By: Gwen Longoria Diet: advance to usual diet Activity on Discharge: As tolerated Stand Alone Forms: Patient Portal Discharge page Other Ambulatory Orders: Complete Blood Count Auto Diff (Routine) Timeframe: 1 Month Facility: [facility] - Location: Laboratory Ordered By: Gwen Longoria Care Plan Goals: management of chronic flank pain control of seizure episodes quit smoking Health Concerns: chronic flank pain medullary sponge kidney loin pain hematuria syndrome seizure disorder tobacco abuse low white count + low platelet count Plan of Treatment: follow up with your primary care doctor in 1 week, your urologist in 1 week, your neurologist in 2 weeks referral to hematology/oncology in 1 month- repeat CBCd in 1 month Assessment: as above Patient Instructions: Flank Pain (ED)
[2020-12-05] MEDS: Heparin Sodium,Porcine Flush 50 UNITS, 0.9 % Sodium Chloride Flush 5 ML IVFLUSH (14:53)
[2020-12-05 22:16] LABS: Anti Nuclear Antibody Screen POSITIVE (NEGATIVE)
[2020-12-07 16:51] LABS: Levetiracetam Keppra 50.6 mcg/mL (12.0-46.0)
== END 2020-12-05 15:19 | disposition home or self-care (01) | DRG 468 ==
LOC: HO.ED 17:28 → HO.EDOVER 19:50 → HO.IMC 12-02 08:41
PROVIDERS: Internal Medicine; Urology; Admitting Provider Hospitalist; Emergency Provider Emergency Medicine; PCP Surgery; Visit Provider Family Medicine
PROC: 0T768DZ Dilation of Right Ureter with Intraluminal Device, Via Natural or Artificial Opening Endoscopic (ICD-10-PCS; principal; 2020-12-04 16:30)
DX: N39.8 Other specified disorders of urinary system (principal); D69.6 Thrombocytopenia, unspecified; M32.9 Systemic lupus erythematosus, unspecified; Q61.5 Medullary cystic kidney; F44.5 Conversion disorder with seizures or convulsions; N13.5 Crossing vessel and stricture of ureter without hydronephrosis; F17.210 Nicotine dependence, cigarettes, uncomplicated; Z20.822 Contact with and (suspected) exposure to COVID-19; Z71.6 Tobacco abuse counseling; D72.819 Decreased white blood cell count, unspecified; R31.9 Hematuria, unspecified; G89.29 Other chronic pain; R10.9 Unspecified abdominal pain; G40.909 Epilepsy, unspecified, not intractable, without status epilepticus; Z87.442 Personal history of urinary calculi; Z87.440 Personal history of urinary (tract) infections; Z88.5 Allergy status to narcotic agent; Z88.6 Allergy status to analgesic agent; Z79.891 Long term (current) use of opiate analgesic; Z79.899 Other long term (current) drug therapy
CPT/HCPCS: 36415; 74176; 80048; 80076; 80177; 80185; 80307; 80364; 80365; 81001; 82607; 82746; 82947; 83605; 83615; 83690; 85025; 85027; 86038; 86039; 87389; 87635; 93005; 95816; 96361; 96372; 96374; 96375; 96376; 99284; C1758; C1769; C2617; J0131; J1170; J1642; J1650; J1953; J2060; J2250; J2270; J2405; J3010; Q9967

== ENCOUNTER → 2020-12-16 10:34 | Outpatient (BNVA) | payer OTHER, SELFPAY | PROVIDERS: PCP Surgery; Visit Provider Urology | DX: M54.5 Low back pain (principal); N39.0 Urinary tract infection, site not specified; Q61.5 Medullary cystic kidney; R31.9 Hematuria, unspecified; A49.9 Bacterial infection, unspecified | CPT/HCPCS: 52310; 99212 ==